=== PATIENT | male | born 1970 | race Caucasian/White ===

== ENCOUNTER 2018-03-18 13:02 | Day surgery (SDC) | payer OTHER ==
[~2018-03-18] VITALS: Ht 170.2 cm; Wt 97.5 kg
[~2018-03-18 13:02] MED LIST: AMLO10TA82 PO; BTR10SP2 NS; CEPH500C PO; CTLP20T PO; CYCL10TA9 PO; FEXO180T PO; HYDR118S10 PO; PANT20TA2 PO; TRIA1CAP PO
[2018-03-18] MEDS ORDERED: fentaNYL INJECTION 100 MCG/2 ML AMP ONE (13:06)
[2018-03-18] MEDS ORDERED: KETOROLAC 30 MG/ML VIAL ONE (13:07)
[2018-03-18] MEDS ORDERED: ONDANSETRON 4 MG/2 ML (SDV) Z0FRAN ONE (13:07)
--- OUTSIDE RECORDS SUMMARY | 2018-03-18 13:08 | XMS REPORT ---
Author Alfredo Domingo [facility] eClinicalWorks Address Unknown Phone Unavailable Care Team Providers Care Service Station Manager Name Role Phone Alfredo Maldonado Unavailable Allergies, Adverse Reactions, Alerts Substance Reaction Event Type N.K.D.A. Info Not Available Non Drug Allergy Problems Problem Type Condition Code Onset Dates Condition Status Assessment Gastroesophageal reflux 530.81 Active Assessment Dysthymia 300.4 Active Assessment Back pain 724.5 Active Problem Hypertension 401.9 Active Problem Dysthymia 300.4 Active Problem Upper respiratory infection 465.9 Active Assessment Upper respiratory infection 465.9 Active Assessment Hypertension 401.9 Active Problem Back pain 724.5 Active Problem Gastroesophageal reflux 530.81 Active Medications Medication Code System Code Instructions Start Date End Date Status Dosage Montelukast Sodium [facility] [address]-00 10 MG Orally at bedtime 1 tablet Pantoprazole Sodium [facility] [address]-21 40 mg Orally once daily [address] [facility] [address]-96 10 MG Orally Once a day [address] [facility] [address]-78 5 mg Orally Once a day [address] [facility] [address]-69 500 MG Orally Twice a day 1 tablet Benazepril HCl [facility] [address]-46 40 mg Orally Once a day 1 tablet Fexofenadine HCl [facility] [address]-68 180 MG Orally Once a day [address] [place] [facility] [address]-54 10-325 MG Orally every 6 hrs 1 tablet as needed Citalopram Hydrobromide [facility] [address]-79 20 mg Orally Once a day 1 tablet Butorphanol Tartrate [facility] [address]-74 10 MG/ML Nasally every 8 hrs 1 ml as needed Procedures Procedure Coding System Code Date Administration Fee 18yrs and up 1st injection CPT-4 85577 February 10, 2015 OFFICE VISITNEW PT CPT-4 18293 February 10, 2015 Depo Medrol 80mg CPT-4 J1040 February 10, 2015 Vital Signs Date/Time: February 10, 2015 Blood Pressure Systolic 160 mm Hg Height 68.5 in Weight 224 lbs BMI 33.56 Index Blood Pressure Diastolic 112 mm Hg Results No Known Results Summary Purpose eClinicalWorks Submission
--- OUTSIDE RECORDS SUMMARY | 2018-03-18 13:08 | XMS REPORT ---
Author Author Alfredo Maldonado [facility] eClinicalWorks Address Unknown Phone Unavailable Care Team Providers Care Weight Loss Sales Consultant Name Role Phone Alfredo Maldonado Unavailable Allergies No Known Allergies Problems Problem Type Condition Code Onset Dates Condition Status Problem Hypertension 401.9 Active Problem Dysthymia 300.4 Active Problem Upper respiratory infection 465.9 Active Problem Back pain 724.5 Active Problem Gastroesophageal reflux 530.81 Active Medications No Known Medications Results No Known Results Summary Purpose eClinicalWorks Submission
--- OUTSIDE RECORDS SUMMARY | 2018-03-18 13:08 | XMS REPORT | Clinical Summary ---
Author Author User, [employer] Erick Martinez DO, FACP Address Unknown Phone Allergies, Adverse Reactions, Alerts Allergy Name Reaction Description Start Date Severity Status Provider No Known Allergies Rosario Steiner Conditions or Problems Problem Name Problem Code Onset Date Status Entry Date Provider Comment Standard Description Annotate HYPERTENSION 401.1 Active Shaniqua Martinez Benign essential hypertension HYPERCHOLESTEROLEMIA 272.0 Active Shaniuqa Martinez Pure hypercholesterolemia HYPERGLYCEMIA, MILD 790.6 Active Shaniqua Martinez Other abnormal blood chemistry BACK PAIN 724.5 Active Shaniqua Martinez Backache, unspecified OBESITY 278.0 Resolved Shaniqua Martinez Overweight and obesity WEIGHT GAIN, ABNORMAL 783.1 Active Shaniqua Martinez Abnormal weight gain GERD 530.81 Resolved Shaniqua Martinez Esophageal reflux ALLERGIC RHINITIS, SEASONAL 477.0 Resolved Shaniqua Martinez Allergic rhinitis due to pollen OTHER CHRONIC NONALCOHOLIC LIVER DISEASE 571.8 Active Shaniqua Martinez Other chronic nonalcoholic liver disease HYPERTRIGLYCERIDEMIA 272.1 Active Shaniqua Martinez Pure hyperglyceridemia OBSTRUCTIVE SLEEP APNEA 780.57 Active Shaniqua Martinez Unspecified sleep apnea VERTIGO 780.4 Resolved Shaniqua Martinez Dizziness and giddiness NEUROPATHY, IDIOPATHIC PERIPHERAL 356.9 Resolved Shaniqua Martinez Unspecified idiopathic peripheral neuropathy DEMYELINATING DISEASE, CENTRAL 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.9 Resolved Shaniqua Martinez Demyelinating disease of central nervous system, unspecified HEADACHE 784.0 Resolved Shaniqua Martinez Headache CVA WITH RIGHT HEMIPARESIS 438.20 Active Shaniqua Martinez Hemiplegia affecting unspecified side as late effect of cerebrovascular disease ERECTILE DYSFUNCTION, 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 Shaniqua Martinez Impotence of organic origin GERD 530.81 Active Shaniqua Martinez Esophageal reflux HYPERLIPIDEMIA 272.4 Resolved Shaniqua Martinez Other and unspecified hyperlipidemia WHEEZING 786.07 Resolved Shaniqua Martienz Wheezing CELLULITIS 682.9 Resolved Shaniqua Martinez Cellulitis and abscess of unspecified sites CELLULITIS, METHICILLIN RESISTANT STAPHYLOCCOCUS AREUS 682.9 Resolved Shaniqua Martinez Cellulitis and abscess of unspecified sites HEALTH SCREENING V70.0 Inactive Shaniqua Martinez Routine general medical examination at a health care facility LUMBAR RADICULOPATHY, LEFT 724.4 Resolved Shaniqua Martinez Thoracic or lumbosacral neuritis or radiculitis, unspecified URINARY RETENTION 788.20 Resolved Shaniqua Martinez Retention of urine, unspecified HEALTH SCREENING V70.0 Active Shaniqua Martinez Routine general medical examination at a health care facility Medication List Medication Instructions Start Date Stop Date Generic Name NDC Status Provider Patient Instruction LENORA ALLERGY 180 MG TABS 1 PO DAILY FEXOFENADINE HCL 76302767730 Active Za Sanabria FLONASE 50 MCG/DOSE INHALANT 2 puffs each nostril daily FLONASE 50 MCG/DOSE INHALANT No Longer Active Shaniqua Jennifer Martinez ROBAXIN-750 TABS 1 PO TID PRN METHOCARBAMOL TABS 79335020449 No Longer Active Shaniqua Jennifer Martinez ROBAXIN-750 TABS 1 PO TID PRN METHOCARBAMOL TABS 04392920487 No Longer Active Shaniqua Jennifer Martinez BYSTOLIC 5 MG TABS 1 PO daily NEBIVOLOL HCL 84101382020 Active Za Sanabria LOTENSIN 40 MG TABS 1 PO daily BENAZEPRIL HCL 65095652008 Active Za Sanabria VIAGRA 50 MG TABS 1 po as directed SILDENAFIL CITRATE 64116431491 No Longer Active Shaniqua Jennifer Martinez DOXYCYCLINE HYCLATE 100 MG CAP 1 po BID DOXYCYCLINE HYCLATE 16969120483 No Longer Active Shaniqua Jennifer Martinez BACTROBAN 2 % CREAM Apply to affected area BID MUPIROCIN CALCIUM 58259248467 No Longer Active Shaniqua Jennifer Martinez VOLTAREN 75 MG EC TAB 1 PO BID DICLOFENAC SODIUM No Longer Active Shaniqua Jennifer Martinez ROBITUSSIN A-C 10-100 MG/5ML SYRUP 1 teaspoon PO Q 4-6 hr prn ROBITUSSIN A-C 10-100 MG/5ML SYRUP No Longer Active Shaniqua Jennifer Martinez SINGULAIR 10 MG TABS 1 PO QHS MONTELUKAST SODIUM 87518455877 Active Za Sanabria PREDNISONE 20 MG TAB 2 pills at once for 3 days then 1 pill daily for 3 days PREDNISONE 68933750712 No Longer Active Shaniqua Jennifer Martinez SYMBICORT 160-4.5 MCG/ACT AERO 2 puffs BID BUDESONIDE- FORMOTEROL FUMARATE 46594428434 Active Shaniqua Martinez PROAIR HFA 108 (90 BASE) MCG/ACT AERS 2 puff Q4 hrs prn wheezing ALBUTEROL SULFATE 82408288272 No Longer Active Shaniqua Martinez PROTONIX 40 MG TBEC 1 po BID PANTOPRAZOLE SODIUM 50744750483 Active Za Sanabria PROTONIX 40 MG PACK 1 PO daily PANTOPRAZOLE SODIUM 86127717025 No Longer Active Shaniqua Martinez HYDROCODONE-ACETAMINOPHEN 10-325 MG TABS 1 PO TID prn HYDROCODONE-ACETAMINOPHEN 54998871666 Active Shaniqua Martinez MULTIVITAMINS TABS 1 PO QD MULTIPLE VITAMIN 72801042339 Active Shaniqua Martinez NORVASC 10 MG TAB 1 PO QD AMLODIPINE BESYLATE 95952200335 Active Za Sanabria BUTORPHANOL TARTRATE 10 MG/ML SOLN 1 puff in nostril daily prn back pain 2009 BUTORPHANOL TARTRATE 49040771241 Active Shaniqua Martinez DYAZIDE 37.5-25 MG CAP 1 PO daily TRIAMTERENE-HCTZ 24099265082 Active Za Sanabria CELEXA 20 MG TABS 1 PO daily CITALOPRAM HYDROBROMIDE 95764846286 Active Za Sanabria Immunizations Vaccine Administration Date Value Standard Description Influenza vaccine given Done influenza virus vaccine, unspecified formulation Influenza vaccine given Received influenza virus vaccine, unspecified formulation Vital Signs Date Name Value Unit Range Description blood pressure, diastolic - 8462-4 90 mm[Hg] BP gonzalez blood pressure, systolic - 8480-6 144 mm[Hg] BP sys pulse rate E&M - 8867-4 70 /min Heart rate respiratory rate E&M - 9279-1 14 /min Resp rate temperature E&M 98.6 [degF] Body temperature weight E&M - 3141-9 225 [lb_av] Weight Measured blood pressure, diastolic - 8462-4 82 mm[Hg] BP gonzalez blood pressure, systolic - 8480-6 142 mm[Hg] BP sys pulse rate E&M - 8867-4 62 /min Heart rate respiratory rate E&M - 9279-1 14 /min Resp rate temperature E&M 98.6 [degF] Body temperature weight E&M - 3141-9 230 [lb_av] Weight Measured blood pressure, diastolic - 8462-4 80 mm[Hg] BP gonzalez blood pressure, systolic - 8480-6 140 mm[Hg] BP sys pulse rate E&M - 8867-4 72 /min Heart rate respiratory rate E&M - 9279-1 16 /min Resp rate temperature E&M 98.6 [degF] Body temperature weight E&M - 3141-9 238 [lb_av] Weight Measured Diagnostic Results Date Name Value Unit Range Description Clinical Lists Update: CMP,FLP - Chemistry Estimated Glomerular Filtration Rate (calc) >60 mL/min/1.73m2 LDL cholesterol, serum 103 mg/dL albumin, serum 3.5 g/dL alkaline phosphatase, serum 119 U/L urea nitrogen, blood 5 mg/dL calcium, serum 8.4 mg/dL chloride, serum 103 mmol/L cholesterol, serum 164 mg/dL carbon dioxide, venous blood 34 mmol/L creatinine, serum 0.7 mg/dL HDL cholesterol, serum 48 mg/dL potassium, serum 3.6 mmol/L protein, total, serum 6.8 g/dL aspartate aminotransferase (SGOT), serum 20 U/L alanine aminotransferase (SGPT), serum 31 U/L bilirubin, serum, total 0.7 mg/dL triglyceride, serum, fasting 64 mg/dL sodium, serum 140 mmol/L very low density lipoproteins 13 mg/dL glucose, plasma fasting 93 mg/dL Clinical Lists Update: CMP,FLP,HgA1c - Chemistry albumin, serum 3.7 g/dL Estimated Glomerular Filtration Rate (calc) >60 mL/min/1.73m2 potassium, serum 3.8 mmol/L cholesterol, serum 140 mg/dL protein, total, serum 6.5 g/dL calcium, serum 8.8 mg/dL aspartate aminotransferase (SGOT), serum 21 U/L carbon dioxide, venous blood 24 mmol/L alanine aminotransferase (SGPT), serum 15 U/L urea nitrogen, blood 9 mg/dL bilirubin, serum, total 1.2 mg/dL creatinine, serum 0.73 mg/dL triglyceride, serum, fasting 86 mg/dL chloride, serum 109 mmol/L sodium, serum 143 mmol/L HDL cholesterol, serum 41 mg/dL very low density lipoproteins 17 mg/dL alkaline phosphatase, serum 80 U/L glucose, plasma fasting 89 mg/dL hemoglobin A1C, blood, as % of total hemoglobin 5.8 % LDL cholesterol, serum 80 mg/dL Encounters Code Encounter Date Provider Facility CPT-60316 Ofc Vst, Est Level III 21:31:52 CDT Shaniqua Martinez DO, FACP CPT-25058 Ofc Vst, Est Level III 13:58:26 CDT Shaniqua Martinez DO, FACP CPT-78672 Ofc Vst, Est Level IV 21:21:15 CDT Shaniqua Martinez DO, FACP CPT-03729 Ofc Vst, Est Level III 12:29:23 BRAIDING OPERATOR Shaniqua Dickerson Juan, DO, FACP CPT-43467 Ofc Vst, Est Level IV 19:48:53 BRAIDING OPERATOR Shaniqua Dickerson Juan, DO, FACP CPT-36984 Ofc Vst, Est Level III 16:41:08 CDT Shaniqua Jennifer Dickerson Juan, DO, FACP CPT-86568 Ofc Vst, Est Level IV 13:27:18 CDT Shaniquaredd Dickerson Juan, DO, FACP CPT-55584 Ofc Vst, Est Level III 14:43:32 BRAIDING OPERATOR Shaniqua Dickerson Juan, DO, FACP CPT-55588 Ofc Vst, Est Level IV 14:12:51 CDT Shaniqua Jennifer Dickerson Juan, DO, FACP CPT-23684 Ofc Vst, Est Level III 15:33:12 CDT Shaniquaredd Dickerson Juan, DO, FACP CPT-18450 Ofc Vst, Est Level IV 13:47:55 BRAIDING OPERATOR Shaniqua Martinez [facility] CPT-45848 Ofc Vst, Est Level IV 11:25:41 BRAIDING OPERATOR Shaniqua Dickerson Juan, DO, FACP CPT-16099 Ofc Vst, Est Level V 15:38:08 BRAIDING OPERATOR Shaniqua Dickerson Juan, DO, FACP CPT-94567 Ofc Vst, Est Level IV 15:18:33 BRAIDING OPERATOR Shaniqua Rodriguez Martinez [facility] CPT-14448 Ofc Vst, Est Level IV 16:23:07 BRAIDING OPERATOR Shaniqua Rodriguez Juan [facility] CPT-49037 Ofc Vst, Est Level IV 11:31:05 CDT Shaniqua Jennifer Dickerson Juan, DO, FACP CPT-75963 Ofc Vst, Est Level IV 13:50:13 CDT Shaniquaredd Dickerson DO Juan, FACP CPT-26698 Ofc Vst, Est Level IV 14:32:32 CDT Shaniqua Martinez [facility] CPT-42828 Ofc Vst, Est Level IV 13:50:12 CDT Shaniqua Jennifer Floresner [facility] CPT-46152 Ofc Vst, Est Level IV 10:24:58 CDT Shaniqua Jennifer Mcgovern Jayla Martinez DO, FACP CPT-32904 Ofc Vst, Est Level IV 16:15:13 CDT Shaniqua Rodriguezredd Martinez DO, FACP CPT-47207 Ofc Vst, Est Level IV 15:25:35 BRAIDING OPERATOR Shaniqua Rodriguez Juan Martinez DO, FACP CPT-56478 Ofc Vst, New Level IV 15:47:59 BRAIDING OPERATOR Shaniqua Rodriguezi Jayla DO Juan, FACP Procedures Code Procedure Name Date Entry Date Standard Description CPT-61311 Preventive, Est, (40-64) 20:07:15 CDT CPT-25079 Preventive, Est, (40-64) 08:16:24 CDT
--- OUTSIDE RECORDS SUMMARY | 2018-03-18 13:09 | XMS REPORT ---
Author Author Alfredo Maldonado [facility] eClinicalWorks Address Unknown Phone Unavailable Care Team Providers Care Ignition Expert Name Role Phone Alfredo Maldonado Unavailable Allergies No Known Allergies Problems Problem Type Condition Code Onset Dates Condition Status Problem Erectile dysfunction, unspecified erectile dysfunction type N52.9 Active Problem Essential hypertension I10 Active Problem Abdominal pain R10.9 Active Problem Backache, unspecified M54.9 Active Assessment Erectile dysfunction, unspecified erectile dysfunction type N52.9 Active Problem Dysthymic disorder F34.1 Active Problem Gastroesophageal reflux disease without esophagitis K21.9 Active Medications Medication Code System Code Instructions Start Date End Date Status Dosage Viagra [facility] [address]-88 100 MG Orally take 30 min prior to activity 1 tablet as needed Results No Known Results Summary Purpose eClinicalWorks Submission
--- OUTSIDE RECORDS SUMMARY | 2018-03-18 13:09 | XMS REPORT ---
Author Alfredo Domingo [facility] eClinicalWorks Address Unknown Phone Unavailable Care Team Providers Care Evaporator Helper Name Role Phone Alfredo Maldonado Unavailable Allergies, Adverse Reactions, Alerts Substance Reaction Event Type N.K.D.A. Info Not Available Non Drug Allergy Problems Problem Type Condition Code Onset Dates Condition Status Assessment Gastroesophageal reflux disease without esophagitis K21.9 Active Assessment Essential hypertension I10 Active Assessment Dysthymic disorder F34.1 Active Assessment Erectile dysfunction, unspecified erectile dysfunction type N52.9 Active Assessment Medication management Z79.899 Active Problem Erectile dysfunction, unspecified erectile dysfunction type N52.9 Active Problem Essential hypertension I10 Active Problem Abdominal pain R10.9 Active Problem Backache, unspecified M54.9 Active Assessment Wellness examination Z00.00 Active Problem Dysthymic disorder F34.1 Active Problem Gastroesophageal reflux disease without esophagitis K21.9 Active Medications Medication Code System Code Instructions Start Date End Date Status Dosage Viagra [facility] [address]-68 100 MG Orally take 30 min prior to activity 1 tablet as needed Citalopram Hydrobromide [facility] 62312561968 20 TAKE ONE TABLET BY MOUTH DAILY Norvasc [facility] 66219012307 10 TAKE ONE TABLET BY MOUTH DAILY Fexofenadine HCl [facility] 04618257411 180 TAKE ONE TABLET BY MOUTH DAILY Pantoprazole Sodium [facility] [address]-64 40 mg Orally once daily 1 tablet Benazepril HCl [facility] 70630512986 40 TAKE ONE TABLET BY MOUTH DAILY [place] [facility] [address]-92 10-325 MG Orally every 6 hrs 1 tablet as needed Montelukast Sodium [facility] 88293334945 10 TAKE ONE TABLET BY MOUTH AT BEDTIME Butorphanol Tartrate [facility] [address]-63 10 MG/ML Nasally every 8 hrs 1 ml as needed Bystolic [facility] 25572570469 5 TAKE ONE TABLET BY MOUTH DAILY Procedures Procedure Coding System Code Date LIPID PROFILE CPT-4 74219 May 17, 2016 URINALYSIS CPT-4 59372 May 17, 2016 COMP PROFILE CPT-4 41073 May 17, 2016 TESTOSTERONE, TOTAL CPT-4 64462 May 17, 2016 CBC CPT-4 07873 May 17, 2016 Vital Signs Date/Time: May 17, 2016 Blood Pressure Systolic 136 mm Hg Height 68.5 in Weight 222 lbs BMI 33.26 Index Blood Pressure Diastolic 88 mm Hg Results Name Result Date Reference Range Unit Abnormality Flag LIPID PROFILE ----HDL-DIRECT 45 34276816 35-55 MG/DL ----LDL-DIRECT 78 41981205 0-99 MG/DL ----CHOL/HDL 2.9 15046680 4.0-6.7 RATIO L ----CHOLESTEROL 132 75964204 50-200 MG/DL ----TRIGLYCERIDE 86 34449380 30-150 MG/DL TESTOSTERONE ----TESTOSTERONE 8.12 53240250 2.80-8.00 ng/mL H CBC ----MCV 90.7 75928020 80.0-94.0 FL ----HCT 43.8 53606572 39.0-49.0 % ----MCHC 33.3 74657047 32.0-36.0 G/DL ----MCH 30.2 05349375 26.0-32.0 PG ----EO# 0.2 57545214 0.0-0.2 X10^3/UL ----PLT 277 25182019 130-400 X10^3 ----EO% 2.8 49586393 0.0-3.0 % ----RDW 12.4 49538273 11.5-15.5 % ----MO# 0.5 99560045 0.1-0.6 X10^3/UL ----MO% 6.0 95740072 1.7-9.3 % ----LY# 1.9 81685413 1.2-3.4 X10^3/UL ----BA# 0.1 98886697 0.0-0.1 X10^3/UL ----BA% 0.8 73445349 0.0-1.0 % ----HGB 14.6 59779334 13.8-17.0 G/DL ----RBC 4.83 02635439 4.50-5.70 X10^6 ----MPV 10.8 19100614 9.0-12.1 FL ----WBC 7.6 84125075 4.0-10.0 X10^3/UL ----NE% 65.4 19151620 42.2-75.2 % ----NE# 4.9 14026280 1.4-6.5 X10^3/UL ----LY% 24.6 43164048 20.5-51.1 % COMPREHENSIVE CHEM PROFILE ----SODIUM 143 12184283 133-145 MMOL/L ----TOTAL BILI 1.11 30388239 0.00-1.00 MG/DL H ----CHLORIDE 104 28487566 96-108 MMOL/L ----POTASSIUM 4.1 23554099 3.3-5.1 MMOL/L ----CALCIUM 9.0 63983126 8.7-10.3 MG/DL ----AST/SGOT 18 82570162 5-40 U/L ----CO2 28 49120769 23-31 MMOL/L ----TOTAL PROTEIN 6.7 86397114 5.9-8.4 G/DL ----eGFR If Am 176 43991160 >60 ml/min/1.73m^2 ----ALBUMIN 3.8 41163103 3.2-5.2 G/DL ----eGFR If Non Am 146 21807943 >60 ml/min/1.73m^2 ----BUN 7 96039555 6-20 MG/DL ----ALT/SGPT 9 62602171 5-40 U/L ----ALK PHOS 88 54371485 34-114 U/L ----CREATININE 0.6 23271221 0.5-1.2 MG/DL ----GLUCOSE 101 85097082 60-99 MG/DL H ----GLOBULIN 2.9 63151579 2.0-4.4 G/DL Urinalysis ----KETONES NEG 65578655 NEGATIVE ----GLUCOSE NORM 10141492 NEG MG/DL ----PROTEIN NEG 16700139 NEGATIVE ----pH 6.5 20160517 5-8 ----NITRITES NEG 20160517 NEGATIVE ----LEUKOCYTES NEG 20160517 NEGATIVE ----CLARITY CLEAR 20160517 CLEAR ----COLOR D.YEL 20160517 YELLOW-STRAW ----MUCOUS 2+ 20160517 NONE/HPF hpf ---- RBC 1-3 71199236 0-2/HPF hpf ----OTHER CASTS 0 20160517 NONE/LPF lpf ----SQUAMOUS EPITH OCCASIONAL 20160517 FEW/HPF hpf ----BACTERIA 0 80065378 NONE/HPF hpf ----CRYSTALS 0 20160517 NONE/HPF hpf ----BILIRUBIN NEG 20160517 NEGATIVE ----BLOOD NEG 20160517 NEGATIVE ----SPEC GRAVITY 1.023 20160517 1.016-1.022 ---- WBC 0-1 69470971 0-5/HPF hpf ----UROBILINOGEN 8 20160517 0 - 1.0 MG/DL Summary Purpose eClinicalWorks Submission
--- OUTSIDE RECORDS SUMMARY | 2018-03-18 13:09 | XMS REPORT | Clinical Summary ---
Author Author User, [employer] Shaniqua Martinez DO, FACP Address Unknown Phone Allergies, Adverse Reactions, Alerts Allergy Name Reaction Description Start Date Severity Status Provider No Known Allergies Rosario Steiner Conditions or Problems Problem Name Problem Code Onset Date Status Entry Date Provider Comment Standard Description Annotate HYPERTENSION 401.1 Active Shaniqua Martinez Benign essential hypertension HYPERCHOLESTEROLEMIA 272.0 Active Shaniqua Martinez Pure hypercholesterolemia HYPERGLYCEMIA, MILD 790.6 Active [...] and unspecified hyperlipidemia WHEEZING 786.07 Resolved Shaniqua Martinez Wheezing CELLULITIS 682.9 Resolved Shaniqua Martinez Cellulitis [...] MG TABS 1 PO DAILY FEXOFENADINE HCL 73562887994 Active Za Sanabria FLONASE 50 MCG/DOSE INHALANT 2 puffs each nostril daily FLONASE 50 MCG/DOSE INHALANT No Longer Active Shaniqua Jennifer Martinez ROBAXIN-750 TABS 1 PO TID PRN METHOCARBAMOL TABS 14990734696 No Longer Active Shaniqua Jennifer Martinez ROBAXIN-750 TABS 1 PO TID PRN METHOCARBAMOL TABS 18990221734 No Longer Active Shaniqua Jennifer Martinez BYSTOLIC 5 MG TABS 1 PO daily NEBIVOLOL HCL 79410442527 Active Za Sanabria LOTENSIN 40 MG TABS 1 PO daily BENAZEPRIL HCL 06169304299 Active Za Sanabria VIAGRA 50 MG TABS 1 po as directed SILDENAFIL CITRATE 20613643924 No Longer Active Shaniqua Jennifer Martinez DOXYCYCLINE HYCLATE 100 MG CAP 1 po BID DOXYCYCLINE HYCLATE 56885605257 No Longer Active Shaniqua Jennifer Martinez BACTROBAN 2 % CREAM Apply to affected area BID MUPIROCIN CALCIUM 92039722817 No Longer Active Shaniqua Jennifer Martinez VOLTAREN 75 MG EC TAB 1 PO BID DICLOFENAC SODIUM No Longer Active Shaniqua Jennifer Martinez ROBITUSSIN A-C 10-100 MG/5ML SYRUP 1 teaspoon PO Q 4-6 hr prn ROBITUSSIN A-C 10-100 MG/5ML SYRUP No Longer Active Shaniqua Jennifer Martinez SINGULAIR 10 MG TABS 1 PO QHS MONTELUKAST SODIUM 98345767975 Active Za Sanabria PREDNISONE 20 MG TAB 2 pills at once for 3 days then 1 pill daily for 3 days PREDNISONE 96565886424 No Longer Active Shaniqua Jennifer Martinez SYMBICORT 160-4.5 MCG/ACT AERO 2 puffs BID BUDESONIDE- FORMOTEROL FUMARATE 40484888023 Active Shaniquaredd Martinez PROAIR HFA 108 (90 BASE) MCG/ACT AERS 2 puff Q4 hrs prn wheezing ALBUTEROL SULFATE 24405279659 No Longer Active Shaniqua Martinez PROTONIX 40 MG TBEC 1 po BID PANTOPRAZOLE SODIUM 99212772610 Active Za Sanabria PROTONIX 40 MG PACK 1 PO daily PANTOPRAZOLE SODIUM 94847125950 No Longer Active Shaniqua Martinez HYDROCODONE-ACETAMINOPHEN 10-325 MG TABS 1 PO TID prn HYDROCODONE-ACETAMINOPHEN 40845782203 Active Shaniqua Martinez MULTIVITAMINS TABS 1 PO QD MULTIPLE VITAMIN 57829123617 Active Shaniqua Martinez NORVASC 10 MG TAB 1 PO QD AMLODIPINE BESYLATE 03936625896 Active Za Sanabria BUTORPHANOL TARTRATE 10 MG/ML SOLN 1 puff in nostril daily prn back pain 2009 BUTORPHANOL TARTRATE 47838995960 Active Shaniqua Martinez DYAZIDE 37.5-25 MG CAP 1 PO daily TRIAMTERENE-HCTZ 07913538893 Active Za Sanabria CELEXA 20 MG TABS 1 PO daily CITALOPRAM HYDROBROMIDE 75314689890 Active Za Sanabria Immunizations Vaccine Administration Date [...] mg/dL Encounters Code Encounter Date Provider Facility CPT-79548 Ofc Vst, Est Level III 21:31:52 CDT Shaniqua Martinez DO FACP CPT-41314 Ofc Vst, Est Level III 13:58:26 CDT Shaniqua Martinez DO, FACP CPT-80969 Ofc Vst, Est Level IV 21:21:15 CDT Shaniqua Martinez DO, FACP CPT-52486 Ofc Vst, Est Level III 12:29:23 [facility] Shaniqua Dickerson Martinez, DO, FACP CPT-20094 Ofc Vst, Est Level IV 19:48:53 [facility] [employer] [facility] Shaniqua Jennifer Dickerson Juan, DO, FACP CPT-51447 Ofc Vst, Est Level III 16:41:08 CDT Shaniqua Jennifer Dickerson Juan, DO, FACP CPT-22301 Ofc Vst, Est Level IV 13:27:18 CDT Shaniqua Jennifer Dickerson Juan, DO, FACP CPT-88835 Ofc Vst, Est Level III 14:43:32 [employer]UD[facility] [employer]ELOP[employer] [facility] Shaniqua Dickerson Juan, DO, FACP CPT-73610 Ofc Vst, Est Level IV 14:12:51 CDT Shaniqua Jennifer Dickerson Juan, DO, FACP CPT-07208 Ofc Vst, Est Level III 15:33:12 CDT Shaniquaredd Dickerson Juan, DO, FACP CPT-60604 Ofc Vst, Est Level IV 13:47:55 [facility]UD[facility] [employer]EL[employer] [facility] Shaniqua [facility] CPT-38623 Ofc Vst, Est Level IV 11:25:41 STUDENT [employer]ELOP[employer] [facility] Shaniqua Dickerson Juan, DO, FACP CPT-46772 Ofc Vst, Est Level V 15:38:08 STUDENT [employer]ELOP[employer] [facility] Shaniqua Dickerson Juan, DO, FACP CPT-41165 Ofc Vst, Est Level IV 15:18:33 STUDENT DEVELOPMENT [facility]AN Shaniqua Rodriguez [facility] CPT-23120 Ofc Vst, Est Level IV 16:23:07 STUDENT DEVELOPMENT [facility] Shaniqua Rodriguez [facility] CPT-47674 Ofc Vst, Est Level IV 11:31:05 CDT Shaniqua Jennifer Dickerson Juan, DO, FACP CPT-71873 Ofc Vst, Est Level IV 13:50:13 CDT Shaniquaredd Dickerson Juan DO, FACP CPT-42090 Ofc Vst, Est Level IV 14:32:32 CDT Shaniquaredd Martinez [facility] CPT-88171 Ofc Vst, Est Level IV 13:50:12 CDT Shaniqua Jennifer Floresner [facility] CPT-60780 Ofc Vst, Est Level IV 10:24:58 CDT Shaniqua Jennifer Dickerson Juan DO, FACP CPT-15228 Ofc Vst, Est Level IV 16:15:13 CDT Shaniquaredd Dickerson Juan DO, FACP CPT-76441 Ofc Vst, Est Level IV 15:25:35 STUDENT [employer]ELOP[employer] [facility] Shaniqua Dickerson Juan DO, FACP CPT-16868 Ofc Vst, New Level IV 15:47:59 STUDENT DEVELOPMENT [facility] Shaniqua Dickerson Juan DO, FACP Procedures Code Procedure Name Date Entry Date Standard Description CPT-39500 Preventive, Est, (40-64) 20:07:15 CDT CPT-81675 Preventive, Est, (40-64) 08:16:24 CDT
[2018-03-18] MEDS ORDERED: ONDANSETRON 4 MG/2 ML (SDV) Z0FRAN IVP ONE (13:15)
[2018-03-18] MEDS ORDERED: fentaNYL INJECTION 100 MCG/2 ML AMP IVP ONE ×3 (13:15→14:00)
[2018-03-18] MEDS ORDERED: KETOROLAC 30 MG/ML VIAL IVP ONE (13:15)
--- NOTE | 2018-03-18 13:17 | ED Abdominal Pain ---
General Chief Complaint: Abdominal/GI Problems Stated Complaint: ABD PAIN,BACK PAIN Source of Information: Patient Exam Limitations: No Limitations History of Present Illness Date Seen by Provider: Mar 18, 2018 Time Seen by Provider: 13:18 Initial Comments to ER with right upper quadrant and epigastric abdominal pain severe in nature radiating through to his back making it difficult to take a deep breath. This pain awakened him from sleep at 07 30 this morning. His associated dry heaving, nausea and vomited twice. One of these episodes of vomiting he did notice some blood-streaked emesis. History of lap band. No fevers or chills. Timing/Duration: 4-6 Hours Severity/Quality: Severe Location: RUQ, Epigastric Radiation: Back Activities at Onset: None Associated Symptoms: Back Pain; No Fever/Chills; Nausea/Vomiting Allergies and Home Medications Allergies Coded Allergies: No Known Drug Allergies (Unverified , 05/09/10) Home Medications Amlodipine Besylate 10 Mg Tablet, 1 EACH PO DAILY, (Reported) Butorphanol Tartrate 10 Mg/Ml Can, 1 SPRAY NS NEEDED, (Reported) Citalopram Hydrobromide 20 Mg Tablet, 1 EACH PO DAILY, (Reported) Fexofenadine Hcl 180 Mg Tablet, 1 TAB PO DAILY, (Reported) Pantoprazole Sodium 20 Mg Tablet.dr, 40 MG PO DAILY, (Reported) Triamterene/Hctz 1 Each Capsule, 1 EACH PO DAILY, (Reported) Patient Home Medication List Home Medication List Reviewed: Yes Review of Systems Constitutional: see HPI EENTM: No Symptoms Reported Respiratory: No Symptoms Reported Cardiovascular: No Symptoms Reported Gastrointestinal: See HPI, Abdominal Pain, Nausea, Vomiting Genitourinary: No Symptoms Reported Musculoskeletal: no symptoms reported Skin: no symptoms reported Psychiatric/Neurological: No Symptoms Reported Endocrine: No Symptoms Reported Hematologic/Lymphatic: No Symptoms Reported Past Rpdvoec-Ixmwqg-Hbvgtt Hx Patient Social History Alcohol Use: Occasionally Uses Recreational Drug Use: No Smoking Status: Never a Smoker Recent Foreign Travel: No Contact w/Someone Who Travel: No Recent Hopitalizations: Yes (back and T&A surgeries) Physical Abuse: No Sexual Abuse: No Mistreated: No Fear: No Immunizations Up To Date Tetanus Booster (TDap): Less than 5yrs Date of Influenza Vaccine: Jul 17, 2013 Past Medical History Surgeries: Yes (BACK SURGERY, LAP BAND) Respiratory: No Cardiac: Yes Hypertension Neurological: No Reproductive Disorders: No Sexually Transmitted Disease: No Gastrointestinal: No Musculoskeletal: No Endocrine: No Cancer: No Psychosocial: Yes Depression Nursing Suicide Risk Score: 0 Integumentary: No Blood Disorders: No Family Medical History No Pertinent Family Hx Physical Exam Vital Signs Vital Signs - First Documented 03/18/18 13:12 Temp 98.2 Pulse 60 Resp 20 B/P (MAP) 188/129 (148) Pulse Ox 100 Capillary Refill : General Appearance: moderate distress HEENT: PERRL/EOMI, normal ENT inspection Neck: non-tender, full range of motion Respiratory: normal breath sounds, no respiratory distress, no accessory muscle use Cardiovascular: regular rate, rhythm, no murmur Gastrointestinal: normal bowel sounds, soft, tenderness (right upper quadrant and epigastric) Extremities: normal range of motion, non-tender Neurologic/Psychiatric: alert, normal mood/affect, oriented x 3 Skin: normal color, warm/dry Progress/Results/Core Measures Results/Orders Lab Results Laboratory Tests Test 03/18/18 13:07 Range/Units White Blood Count 6.6 4.3-11.0 10^3/uL Red Blood Count 5.00 4.35-5.85 10^6/uL Hemoglobin 15.3 13.3-17.7 G/DL Hematocrit 44 40-54 % Mean Corpuscular Volume 88 80-99 FL Mean Corpuscular Hemoglobin 31 25-34 PG Mean Corpuscular Hemoglobin Concent 35 32-36 G/DL Red Cell Distribution Width 12.9 10.0-14.5 % Platelet Count 349 130-400 10^3/uL Mean Platelet Volume 9.7 7.4-10.4 FL Neutrophils (%) (Auto) 46 42-75 % Lymphocytes (%) (Auto) 44 12-44 % Monocytes (%) (Auto) 8 0-12 % Eosinophils (%) (Auto) 2 0-10 % Basophils (%) (Auto) 1 0-10 % Neutrophils # (Auto) 3.0 1.8-7.8 X 10^3 Lymphocytes # (Auto) 2.9 1.0-4.0 X 10^3 Monocytes # (Auto) 0.5 0.0-1.0 X 10^3 Eosinophils # (Auto) 0.1 0.0-0.3 10^3/uL Basophils # (Auto) 0.1 0.0-0.1 10^3/uL Sodium Level 142 135-145 MMOL/L Potassium Level 3.4 L 3.6-5.0 MMOL/L Chloride Level 106 98-107 MMOL/L Carbon Dioxide Level 25 21-32 MMOL/L Anion Gap 11 5-14 MMOL/L Blood Urea Nitrogen 9 7-18 MG/DL Creatinine 0.78 0.60-1.30 MG/DL Estimat Glomerular Filtration Rate > 60 BUN/Creatinine Ratio 12 Glucose Level 111 H 70-105 MG/DL Calcium Level 9.4 8.5-10.1 MG/DL Total Bilirubin 1.1 H 0.1-1.0 MG/DL Aspartate Amino Transf (AST/SGOT) 20 5-34 U/L Alanine Aminotransferase (ALT/SGPT) 13 0-55 U/L Alkaline Phosphatase 103 40-136 U/L Total Protein 7.5 6.4-8.2 GM/DL Albumin 4.0 3.2-4.5 GM/DL Lipase 30 8-78 U/L My Orders Orders - JERO BENITEZ APRN Cbc With Automated Diff (03/18/18 13:10) Comprehensive Metabolic Panel (03/18/18 13:10) Lipase (03/18/18 13:10) Ua Culture If Indicated (03/18/18 13:10) Iv Heplock-Insert (Order) (03/18/18 13:10) Ondansetron Injection (Zofran Injectio (03/18/18 13:15) Fentanyl Injection (Sublimaze Injection (03/18/18 13:15) Ketorolac Injection (Toradol Injection) (03/18/18 13:15) Us Gallbladder [id number] (03/18/18 13:13) Fentanyl Injection (Sublimaze Injection (03/18/18 13:30) Fentanyl Injection (Sublimaze Injection (03/18/18 14:00) Medications Given in ED Current Medications Medications Dose Ordered Sig/Amy Route Start Time Stop Time Status Last Admin Dose Admin Fentanyl Citrate 50 mcg ONCE ONCE IVP 03/18/18 13:30 03/18/18 13:31 DC 03/18/18 13:22 50 MCG Fentanyl Citrate 75 mcg ONCE ONCE IVP 03/18/18 13:15 03/18/18 13:16 DC 03/18/18 13:08 75 MCG Ketorolac Tromethamine 30 mg ONCE ONCE IVP 03/18/18 13:15 03/18/18 13:16 DC 03/18/18 13:08 30 MG Ondansetron HCl 8 mg ONCE ONCE IVP 03/18/18 13:15 03/18/18 13:16 DC 03/18/18 13:08 8 MG Vital Signs/I&O 03/18/18 13:12 Temp 98.2 Pulse 60 Resp 20 B/P (MAP) 188/129 (148) Pulse Ox 100 Diagnostic Imaging Diagonstic Imaging: Ultrasound Comments NAME: JAQUELINE MULLEN JR [facility] REC#: [id number] PT STATUS: REG ER : 1970 PHYSICIAN: JERO BENITEZ APRN ADMIT DATE: 03/18/18/ER Draft Date of Exam:03/18/18 US GALLBLADDER [id number] PROCEDURE: US Gallbladder. TECHNIQUE: Multiple real-time grayscale images were obtained over the right upper quadrant in various projections. INDICATION: Abdominal pain. COMPARISON: None. FINDINGS: The liver appears unremarkable. No focal hepatic mass is seen. Common bile duct is not well visualized; however, no gross biliary dilatation is seen. There is a 2 cm stone lodged within the gallbladder neck. There is no gallbladder wall thickening or pericholecystic fluid. There is no sonographic Ordonez's sign. The pancreas is not well visualized. The right kidney measures 11.7 cm in length and appears normal. There is no ascites. IMPRESSION: 1. Cholelithiasis without evidence of cholecystitis. 2. No additional abnormality is seen. The pancreas and common bile duct are not well seen. Dictated on workstation # [id number] Dict: 03/18/18 1409 Trans: 03/18/18 1413 [facility] [id number] Interpreted by: DAMON VIVAR DO Electronically signed by: NAME: JAQUELINE MULLEN JR [facility] REC#: [id number] PT STATUS: ADM Cali : 1970 PHYSICIAN: JERO BENITEZ APRN ADMIT DATE: 03/18/18/4TH Signed Date of Exam:06/04/18 US GALLBLADDER [id number] PROCEDURE: US Gallbladder. TECHNIQUE: Multiple real-time grayscale images were obtained over the right upper quadrant in various projections. INDICATION: Abdominal pain. COMPARISON: None. FINDINGS: The liver appears unremarkable. No focal hepatic mass is seen. Common bile duct is not well visualized; however, no gross biliary dilatation is seen. There is a 2 cm stone lodged within the gallbladder neck. There is no gallbladder wall thickening or pericholecystic fluid. There is no sonographic Ordonez's sign. The pancreas is not well visualized. The right kidney measures 11.7 cm in length and appears normal. There is no ascites. IMPRESSION: 1. Cholelithiasis without evidence of cholecystitis. 2. No additional abnormality is seen. The pancreas and common bile duct are not well seen. 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 Common bile duct cannot be visualized.I relayed these findings to Dr. New who is on-call for surgery. recommends admission, clear liquid diet today, nothing by mouth after midnight with tentative plan for cholecystectomy tomorrow. He would recommend Zosyn, nausea and pain medication and continuing his antihypertensives. Impression Primary Impression: Symptomatic cholelithiasis Disposition: ADMITTED INPATIENT Condition: Stable Admissions Decision to Admit Reason: Admit from ER (General) Decision to Admit/Date: Mar 18, 2018 Time/Decision to Admit Time: 14:08 Departure-Patient Inst. Referrals: NO,LOCAL PHYSICIAN (PCP/Family) Primary Care Physician JERO BENITEZ APRN Mar 18, 2018 13:17
[2018-03-18 13:18] LABS: BASOPHILS # (AUTO) 0.1 10^3/uL (0.0-0.1); BASOPHILS % (AUTO) 1 % (0-10); EOSINOPHILS # (AUTO) 0.1 10^3/uL (0.0-0.3); EOSINOPHILS % (AUTO) 2 % (0-10); HEMATOCRIT 44 % (40-54); HEMOGLOBIN 15.3 G/DL (13.3-17.7); LYMPHOCYTES # (AUTO) 2.9 X 10^3 (1.0-4.0); LYMPHOCYTES % (AUTO) 44 % (12-44); MEAN CORPUSCULAR HEMOGLOBIN 31 PG (25-34); MEAN CORPUSCULAR HGB CONC 35 G/DL (32-36); MEAN CORPUSCULAR VOLUME 88 FL (80-99); MEAN PLATELET VOLUME 9.7 FL (7.4-10.4); MONOCYTES # (AUTO) 0.5 X 10^3 (0.0-1.0); MONOCYTES % (AUTO) 8 % (0-12); NEUTROPHILS % (AUTO) 46 % (42-75); PLATELET COUNT 349 10^3/uL (130-400); RED CELL DISTRIBUTION WIDTH 12.9 % (10.0-14.5); WHITE BLOOD COUNT 6.6 10^3/uL (4.3-11.0)
[2018-03-18 13:37] LABS: ALANINE AMINOTRANSFERASE 13 U/L (0-55); ALKALINE PHOSPHATASE 103 U/L (40-136); BILIRUBIN,TOTAL 1.1 MG/DL (0.1-1.0); BUN/CREATININE RATIO 12; CALCIUM 9.4 MG/DL (8.5-10.1); CARBON DIOXIDE 25 MMOL/L (21-32); CHLORIDE 106 MMOL/L (98-107); CREATININE SERUM 0.78 MG/DL (0.60-1.30); GFR ESTIMATED > 60; GLUCOSE 111 MG/DL (70-105); LIPASE 30 U/L (8-78); POTASSIUM 3.4 MMOL/L (3.6-5.0); SODIUM 142 MMOL/L (135-145); TOTAL PROTEIN 7.5 GM/DL (6.4-8.2)
[2018-03-18] MEDS ORDERED: PIPERACILLIN SODIUM/TAZOBACTAM 4.5 GM in D5W 100 ML IVPB 100 ML IV ONE (14:00)
--- NOTE | 2018-03-18 14:14 | Diagnostic Imaging Report ---
PROCEDURE: US Gallbladder. TECHNIQUE: Multiple real-time grayscale images were obtained over the right upper quadrant in various projections. INDICATION: Abdominal pain. COMPARISON: None. FINDINGS: The liver appears unremarkable. No focal hepatic mass is seen. Common bile duct is not well visualized; however, no gross biliary dilatation is seen. There is a 2 cm stone lodged within the gallbladder neck. There is no gallbladder wall thickening or pericholecystic fluid. There is no sonographic Ordonez's sign. The pancreas is not well visualized. The right kidney measures 11.7 cm in length and appears normal. There is no ascites. IMPRESSION: 1. Cholelithiasis without evidence of cholecystitis. 2. No additional abnormality is seen. The pancreas and common bile duct are not well seen. Dictated by: Dictated on workstation # [id number]
[2018-03-18] MEDS ORDERED: LACTATED RINGERS 1,000 ML IV PRN (14:44)
[2018-03-18] MEDS ORDERED: KCL 20 MEQ TAB (K-DUR) PO NR (14:45)
[2018-03-18 15:05] VITALS: BP 163/102
[2018-03-18] MEDS ORDERED: PANTOPRAZOLE 40 MG/10 ML (PROTONIX) VIAL IV SCH (15:27)
[2018-03-18] MEDS ORDERED: PIPERACILLIN/TAZO 4.5 GM/D5W 100 ML IVPB IV ONE ×2 (15:30)
[2018-03-18] MEDS ORDERED: ONDANSETRON 4 MG/2 ML (SDV) Z0FRAN IV PRN ×2 (15:30)
[2018-03-18] MEDS ORDERED: fentaNYL INJECTION 100 MCG/2 ML AMP IV PRN (15:30)
[2018-03-18] MEDS ORDERED: NS IV 1000 ML 1,000 ML IV SCH (15:30)
[2018-03-18] MEDS ORDERED: BENA40TA59 PO (15:42)
[2018-03-18] MEDS ORDERED: MONT10TA21 PO (15:44)
[2018-03-18] MEDS ORDERED: CITA20TA12 PO (15:44)
[2018-03-18] MEDS ORDERED: AMLO10TA2 PO (15:44)
[2018-03-18] MEDS ORDERED: PANT40TA3 PO (15:44)
[2018-03-18] MEDS ORDERED: NEBI5TAB8 PO (15:44)
[2018-03-18] MEDS: lisINopril 40 MG (PRINIVIL) TABLET PO SCH (15:44)
[2018-03-18] MEDS: NEBIVOLOL 5 MG TAB (BYSTOLIC) PO SCH (15:44)
[2018-03-18] MEDS ORDERED: FEXO-46 PO (15:44)
[2018-03-18] MEDS: NS W/KCL 40 MEQ/L 1,000 ML IV SCH (15:45)
[2018-03-18] MEDS: fentaNYL INJECTION 100 MCG/2 ML AMP IV PRN ×2 (15:59→19:33)
[2018-03-18] MEDS ORDERED: CATHETER FLUSH 10 ML SYR IV PRN (16:00)
--- NOTE | 2018-03-18 17:42 | History & Physicial ---
History of Present Illness History of Present Illness Reason for visit/HPI Recurrent biliary colic over a 1 year with acute and unresolved pain over the right upper quadrant was the last 48 hours. 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) Date of Admission Mar 18, 2018 at 13:53 Date Seen by Provider: Mar 18, 2018 Time Seen by Provider: 17:38 I consulted on this patient on 03/18/18 17:37 Attending Physician Radha Grace MD Admitting Physician No,Local Physician Consult Allergies and Home Medications Allergies Coded Allergies: No Known Drug Allergies (Unverified , 03/18/18) Home Medications Amlodipine Besylate 10 Mg Tablet, 10 MG PO 0600, (Reported) LAST FILLED #30 Benazepril HCl 40 Mg Tablet, 40 MG PO 0600, (Reported) LAST FILLED #30 10-17-17 Citalopram Hydrobromide 20 Mg Tablet, 20 MG PO 0600, (Reported) LAST FILLED #30 Fexofenadine HCl 180 Mg Tablet, 180 MG PO 0600, (Reported) Montelukast Sodium 10 Mg Tablet, 10 MG PO 0600, (Reported) Nebivolol HCl 5 Mg Tablet, 5 MG PO 0600, (Reported) LAST FILLED #30 10-17-17 Pantoprazole Sodium 40 Mg Tablet.dr, 40 MG PO 0600, (Reported) LAST FILLED #30 10-17-17 Patient Home Medication List Home Medication List Reviewed: Yes Past Hvudcnq-Cqevij-Xnarpm Hx Patient Social History Marrital Status: Employed/Student: employed Alcohol Use: Occasionally Uses Recreational Drug Use: No Smoking Status: Never a Smoker Physical Abuse Screen: No Sexual Abuse: No Recent Foreign Travel: No Contact w/other who traveled: No Recent Hopitalizations: Yes (back and T&A surgeries) Recent Infectious Disease Expo: No Immunizations Up To Date Tetanus Booster (TDap): Less than 5yrs Date of Influenza Vaccine: Jul 17, 2013 Seasonal Allergies Seasonal Allergies: No Surgeries Yes (BACK SURGERY, LAP BAND, T & A) Respiratory No Cardiovascular Yes Hypertension Neurological No Reproductive System Hx Reproductive Disorders: No Sexually Transmitted Disease: No Gastrointestinal Yes Gall Bladder Disease Musculoskeletal Yes (BACK SURGERY) Endocrine History of Endocrine Disorders: No Cancer No Psychosocial History of Psychiatric Problem: Yes Behavioral Health Disorders: Depression Integumentary History of Skin or Integumenta: No Blood Transfusions History of Blood Disorders: No Family Medical History Significant Family History: No Pertinent Family Hx Constitutional: malaise Respiratory: no symptoms reported Cardiovascular: no symptoms reported Gastrointestinal: see HPI Genitourinary: no symptoms reported Musculoskeletal: no symptoms reported Skin: other Psychiatric/Neurological: No Symptoms Reported Physical Exam Vital Signs Vital Signs - First Documented 03/18/18 13:12 Temp 98.2 Pulse 60 Resp 20 B/P (MAP) 188/129 (148) Pulse Ox 100 Capillary Refill : Less Than 3 SecondsLess Than 3 Seconds General Appearance: No Apparent Distress HEENT: Normal ENT Inspection Neck: Normal Inspection Cardiovascular: Regular Rate, Rhythm Gastrointestinal: Soft, Tenderness Back: Other Extremity: Normal Inspection Neurologic/Psychiatric: Alert, Oriented x3 Skin: Warm/Dry Comments evidence of lap band placement with the port situated superior lateral to the umbilicus on the right side. Surgical scar over the mid back. Tenderness over the right upper quadrant, consistent with positive Ordonez's sign. Assessment/Plan Assessment and Plan Gentleman with a solitary gallstone and clinical evidence of early acute cholecystitis. Previous lap band placement for morbid obesity. Elevated bilirubin. Hypertension, controlled. I have initiated intravenous antibiotic therapy and scheduled robotic-assisted cholecystectomy with possible cholangiogram or tomorrow. I have reviewed the anatomic details of gallstone disease, operative details, expected recovery, complications of wound infection and bile leak etc., using a hand drawn illustration. He seems to comprehend and is willing to undergo surgery. Admission Diagnosis Admission Status: Observation Clinical Quality Measures DVT/VTE Risk/Contraindication: Risk Factor Score Per Nursin RFS Level Per Nursing on Admit: 3=High RADHA GRACE MD Mar 18, 2018 17:42
--- NOTE | 2018-03-18 17:42 | Progress Note-Pre Operative ---
Pre-Operative Progress Note H&P Reviewed The H&P was reviewed, patient examined and no changes noted. Date Seen by Provider: Mar 18, 2018 Time Seen by Provider: 17:42 Date H&P Reviewed: Mar 18, 2018 Time H&P Reviewed: 17:42 Pre-Operative Diagnosis: gallstones with acute cholecystitis RADHA GRACE MD Mar 18, 2018 17:42
[2018-03-18] MEDS ORDERED: metroNIDAZOLE 500MG/100ML IVPB 100 ML IV NR (17:45)
[2018-03-18] MEDS ORDERED: ceFAZolin 2 GM IV Premixed 50 ML IV NR (17:45)
[2018-03-18 19:35] VITALS: BP 146/94
[2018-03-18] MEDS ORDERED: PIPERACILLIN/TAZO 4.5 GM/D5W 100 ML IVPB IV SCH ×2 (20:00)
[2018-03-18] MEDS: PIPERACILLIN/TAZO 4.5 GM/D5W 100 ML IVPB IV SCH ×2 (21:25)
[2018-03-19] VITALS: BP 159/98
[2018-03-19] MEDS: fentaNYL INJECTION 100 MCG/2 ML AMP IV PRN ×6 (00:41→23:20)
[2018-03-19] MEDS: NS W/KCL 40 MEQ/L 1,000 ML IV SCH ×3 (02:03→17:42)
[2018-03-19 04:00] VITALS: BP 127/81
[2018-03-19] MEDS: PIPERACILLIN/TAZO 4.5 GM/D5W 100 ML IVPB IV SCH ×4 (05:24→12:55)
[2018-03-19] MEDS: PANTOPRAZOLE 40 MG (PROTONIX) TAB PO SCH (05:28)
[2018-03-19] MEDS: amLODIPine 10 MG (NORVASC) TAB PO SCH (05:28)
[2018-03-19] MEDS ORDERED: NON-FORMULARY MEDICATION 1 EA EA (Amlodipine Besylate 10 MG) PO SCH (06:00)
[2018-03-19] MEDS ORDERED: BENAZEPRIL HCL 40 MG PO SCH (06:00)
[2018-03-19] MEDS ORDERED: NEBIVOLOL 5 MG TAB (BYSTOLIC) PO SCH (06:00)
[2018-03-19 07:11] LABS: ALANINE AMINOTRANSFERASE 10 U/L (0-55); ALKALINE PHOSPHATASE 74 U/L (40-136); BILIRUBIN,TOTAL 1.4 MG/DL (0.1-1.0); BUN/CREATININE RATIO 10; CALCIUM 8.2 MG/DL (8.5-10.1); CARBON DIOXIDE 23 MMOL/L (21-32); CHLORIDE 111 MMOL/L (98-107); CREATININE SERUM 0.78 MG/DL (0.60-1.30); GFR ESTIMATED > 60; GLUCOSE 89 MG/DL (70-105); POTASSIUM 4.2 MMOL/L (3.6-5.0); SODIUM 142 MMOL/L (135-145); TOTAL PROTEIN 5.4 GM/DL (6.4-8.2)
[2018-03-19 08:00] VITALS: BP 126/82
[2018-03-19] MEDS: NEBIVOLOL 5 MG TAB (BYSTOLIC) PO SCH ×2 (10:04→12:53)
[2018-03-19] MEDS: lisINopril 40 MG (PRINIVIL) TABLET PO SCH (10:04)
[2018-03-19 12:00] VITALS: BP 131/71
--- NOTE | 2018-03-19 13:30 | Progress Note-Standard ---
Standard Progress Note Progress Notes/Assess & Plan Date Seen by Provider: Mar 19, 2018 Time Seen by Provider: 12:08 Progress/Assessment & Plan right upper quadrant pain persists. Bilirubin more elevated. Awaiting surgery Final Diagnosis gallstone with acute cholecystitis RADHA GRACE MD Mar 19, 2018 13:30
[2018-03-19] MEDS: LACTATED RINGERS 1,000 ML IV PRN ×3 (14:17→16:27)
[2018-03-19] MEDS ORDERED: BUP/EPI 0.5% 1:200,000 (SENSORCAINE) 30 ML VIAL ONE (14:23)
[2018-03-19] MEDS ORDERED: metroNIDAZOLE 500MG/100ML IVPB 100 ML ONE (14:33)
[2018-03-19] MEDS ORDERED: ceFAZolin 1,000 MG (ANCEF) VIAL ONE (14:33)
[2018-03-19] MEDS ORDERED: NS (IVPB) 100 ML ONE (14:34)
[2018-03-19] MEDS ORDERED: ONDANSETRON 4 MG/2 ML (SDV) Z0FRAN ONE (14:51)
[2018-03-19] MEDS ORDERED: fentaNYL INJECTION 100 MCG/2 ML AMP ONE ×2 (14:51→15:45)
[2018-03-19] MEDS ORDERED: DEXAMETHASONE 10 MG/ML (DECADRON) 1 ML VIAL ONE (14:51)
[2018-03-19] MEDS ORDERED: proPOfol 200 MG/20 ML (DIPRIVAN) VIAL IV ONE (14:51)
[2018-03-19] MEDS ORDERED: GLYCOPYRROLATE 0.2 MG/ML (ROBINUL) 2 ML VIAL ONE (14:51)
[2018-03-19] MEDS ORDERED: MIDAZOLAM 2 MG/2 ML (VERSED) VIAL ONE (14:51)
[2018-03-19] MEDS ORDERED: LIDOCAINE PF 2% 5 ML (XYLOCAINE) VIAL ONE (14:51)
[2018-03-19] MEDS ORDERED: NEOSTIGMINE 1 MG/ML 5 ML SYRINGE ONE (14:51)
[2018-03-19] MEDS ORDERED: SEVOFLURANE (ULTANE) 15 ML INHAL SOLN ONE (14:51)
[2018-03-19] MEDS ORDERED: ROCURONIUM 10 MG/ML 5 ML SYRINGE IV ONE (14:51)
[2018-03-19] MEDS ORDERED: ATROPINE 0.4 MG/ML 20 ML VIAL ONE (15:30)
[2018-03-19] MEDS ORDERED: morphine INJ 10 MG/ML 1ML (SYR OR VIAL) ONE (16:13)
--- NOTE | 2018-03-19 16:32 | Operative Report ---
Operative Report Date of Procedure/Surgery Mar 19, 2018 Surgeon (s) RADHA GRACE MD New Car Sales Manager (s): N/A Post-Operative Diagnosis Same Procedure Performed Laparoscopic cholecystectomy Description of Procedure Anesthesia Type: General Estimated blood loss (mL): Minimal Specimen(s) collected/removed Gallbladder Description of the Procedure Indication for the procedure: This gentleman presented with symptomatic gallstone and features of early acute cholecystitis. Following a brief course of IV antibiotics, he was offered cholecystectomy using laparoscopic technique. Informed consent was obtained after reviewing the details and complications of wound infection, bile leak and the potential for postoperative ERCP, should stones be found in the common bile duct. Description of the procedure: He was placed supine on the operating table and general anesthesia induced using an endotracheal tube. 2 g of Ancef and 500 mg of Flagyl were administered intravenously as prophylaxis against wound infection. Sequential compression devices were placed around his legs, to minimize the risk of venous thrombosis. Abdomen was prepared and draped in the usual sterile manner. Due to previous lap band surgery, I elected to establish pneumoperitoneum using a Veress needle introduced over the left subcostal region. Intra-abdominal pressure was maintained at 15 mmHg, using carbon dioxide insufflation. A 5 mm trocar was placed and anatomy visualized using a 30, conventional laparoscope. The catheter connected to the reservoir associated with the lap band was visualized, slightly surrounded by omentum. Under direct view, I placed a 12 mm trocar over the supraumbilical region, followed by a total of 35 mm trocars over the epigastric region and the right side of the abdomen, respectively. The patient was then turned into reverse Trendelenburg position. Laparoscopic survey confirmed an acutely inflamed gallbladder surrounded by omentum. The latter was gently displaced using blunt dissection, revealing the fundus of the gallbladder. It was retracted cephalad and by a combination of blunt dissection and sharp dissection using Harmonic scalpel, cystic duct and artery with delineated. Due to the inflamed nature of the duct, it was felt reasonable to avoid cholangiogram. Cystic duct was then divided between ligaclips and the stump reinforced with 2 separate PDS Endoloops. Cystic artery was divided between ligaclips. Cholecystectomy was then completed using the Harmonic scalpel. Bleeding from the gallbladder fossa was controlled using cautery. Subhepatic space was then irrigated with saline and the gallbladder placed in an Endo Catch bag, being removed via the supraumbilical trocar site. The fascia over this incision was closed using #1 Vicryl under direct view, using the Yosi Oliver device. Skin incisions were closed using 4-0 Vicryl, in a subcuticular fashion. 0.5 percent Marcaine with epinephrine was infiltrated along the incisions, both pre-emptively and at the conclusion of the operation. He tolerated the procedure well, was extubated in the operating room and taken to the recovery room in a stable condition. Findings of the Procedure See op report Allergies and Home Medications Allergies Coded Allergies: No Known Drug Allergies (Unverified , 03/18/18) Home Medications Amlodipine Besylate 10 Mg Tablet, 10 MG PO 0600, (Reported) LAST FILLED #30 Benazepril HCl 40 Mg Tablet, 40 MG PO 0600, (Reported) LAST FILLED #30 10-17-17 Citalopram Hydrobromide 20 Mg Tablet, 20 MG PO 0600, (Reported) LAST FILLED #30 Fexofenadine HCl 180 Mg Tablet, 180 MG PO 0600, (Reported) Montelukast Sodium 10 Mg Tablet, 10 MG PO 0600, (Reported) Nebivolol HCl 5 Mg Tablet, 5 MG PO 0600, (Reported) LAST FILLED #30 10-17-17 Pantoprazole Sodium 40 Mg Tablet.dr, 40 MG PO 0600, (Reported) LAST FILLED #30 10-17-17 Patient Home Medication List Home Medication List Reviewed: Yes RADHA GRACE MD Mar 19, 2018 4:32 pm
[2018-03-19] MEDS ORDERED: ACHD5005 PO (16:35)
--- NOTE | 2018-03-19 16:36 | Discharge Inst-Simple/Standard ---
Discharge Inst-Standard Discharge Medications New, Converted or Re-Newed RX: RX on Chart Patient Instructions/Follow Up Plan of Care/Instructions/FU: Band-Aids of in a.m. Incentive spirometry. Follow-up in 2 weeks Activity as Tolerated: Yes Discharge Diet: ADA Diet RADHA GRACE MD Mar 19, 2018 4:36 pm
[2018-03-19] MEDS ORDERED: HYDROcodone/APAP 5 MG/325 MG (LORTAB) TAB PO NR (16:45)
[2018-03-19] MEDS: morphine INJ 10 MG/ML 1ML (SYR OR VIAL) IVP PRN ×2 (16:45→16:52)
[2018-03-19] MEDS ORDERED: ONDANSETRON 4 MG/2 ML (SDV) Z0FRAN IVP PRN (17:00)
[2018-03-19] MEDS: HYDROmorphone 1 MG/ML (DILAUDID) 1 ML SYRINGE IV PRN ×2 (17:03→17:13)
[2018-03-19 17:45] VITALS: BP 151/87
[2018-03-19 19:30] VITALS: BP 165/93
[2018-03-20 00:09] VITALS: BP 132/78
[2018-03-20] MEDS: NS W/KCL 40 MEQ/L 1,000 ML IV SCH ×2 (00:13→05:48)
[2018-03-20 04:44] VITALS: BP 128/72
[2018-03-20] MEDS: fentaNYL INJECTION 100 MCG/2 ML AMP IV PRN ×3 (04:47→11:49)
[2018-03-20] MEDS: amLODIPine 10 MG (NORVASC) TAB PO SCH (04:47)
[2018-03-20] MEDS: PANTOPRAZOLE 40 MG (PROTONIX) TAB PO SCH (04:47)
--- NOTE | 2018-03-20 07:41 | Anesthesia-General Post-Op ---
General Patient Condition Mental Status/LOC: Same as Preop Cardiovascular: Satisfactory Nausea/Vomiting: Absent Respiratory: Satisfactory Pain: Controlled Complications: Absent Post Op Complications Complications None Follow Up Care/Instructions Patient Instructions None needed. Anesthesia/Patient Condition Patient Condition Patient is doing well, no complaints, stable vital signs, no apparent adverse anesthesia problems. No complications reported per nursing. MARCE LANDAVERDE CRNA Mar 20, 2018 07:41
[2018-03-20] MEDS: lisINopril 40 MG (PRINIVIL) TABLET PO SCH (08:19)
[2018-03-20 08:30] VITALS: BP 121/75
--- NOTE | 2018-03-20 14:11 | Progress Note-Standard ---
Standard Progress Note Progress Notes/Assess & Plan Date Seen by Provider: Mar 20, 2018 Time Seen by Provider: 13:20 Progress/Assessment & Plan right upper quadrant pain persists. Bilirubin more elevated. Awaiting surgery satisfactory postoperative recovery. Pain control adequate. Afebrile. Tolerating diet and could be discharged home Final Diagnosis gallstones with acute cholecystitis RADHA GRACE MD Mar 20, 2018 2:11 pm
== END 2018-03-20 13:50 | disposition home or self-care (01) ==
LOC: EDUNIT# 13:02 → ER 13:04 → SDC 13:53 → UNDOADMOB 13:53 → 4TH 13:53 → UNDODISOB 03-20 13:50 → SDC 03-20 13:50
PROVIDERS: ATTEND Surgery
DX: K80.10 Calculus of gallbladder with chronic cholecystitis without obstruction (principal); I10 Essential (primary) hypertension; Z86.73 Personal history of transient ischemic attack (TIA), and cerebral infarction without residual deficits; F32.9 Major depressive disorder, single episode, unspecified; K21.9 Gastro-esophageal reflux disease without esophagitis; Z79.899 Other long term (current) drug therapy; Z98.84 Bariatric surgery status
CPT/HCPCS: 36415; 76705; 80053; 83690; 85025; 87081; 88304; 96374; 96375; 96376

== ENCOUNTER 2019-08-06 06:35 | Emergency (ER) | payer OTHER ==
[~2019-08-06] VITALS: Ht 175 cm; Wt 95.0 kg
[~2019-08-06 06:35] MED LIST changes: +ACHD5005 PO; +AMLO10TA7 PO; +BENA40TA59 PO; +CITA20TA12 PO; +FEXO-46 PO; +MONT10TA21 PO; +NEBI5TAB8 PO; +PANT40TA3 PO
[2019-08-06] MEDS ORDERED: LACTATED RINGERS 1,000 ML IV ONE (06:51)
--- NOTE | 2019-08-06 06:59 | ED General ---
General Stated Complaint: SYNCOPE,CP Source of Information: Patient Exam Limitations: No Limitations (ASHLIE GONZALEZ MD) History of Present Illness Date Seen by Provider: Aug 06, 2019 Time Seen by Provider: 06:35 Initial Comments Here with report of episode of weakness, sweating and low blood pressure. 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 He had gone into a patient room to give treatment started feeling weak. He stepped out of the room and roney ost passed out. He was able to hold on to his work station and coworker noticed him and set him down. He was quite diaphoretic at the time as well as pale. Blood pressure 80 systolic. He was brought down to the emergency department for further evaluation. He denies chest pain, breathing problems and states overall he is actually feeling better now. Does have history of hypertension and did take his medicines last night. Reports not missing any doses. Denies nausea, vomiting, diarrhea or recent illness. No recent changes to his medicines. Timing/Duration: 1/2 Hour, Changing Over Time, Gone Now Severity: Moderate Modifying Factors: improves with Rest Associated Systoms: No Chest Pain, No Cough; Diaphoresis; No Nausea/Vomiting, No Shortness of Air; Syncope, Weakness (ASHLIE GONZALEZ MD) Allergies and Home Medications Allergies Coded Allergies: No Known Drug Allergies (Unverified , 03/18/18) Home Medications Amlodipine Besylate 10 Mg Tablet, 10 MG PO 0600, (Reported) LAST FILLED #30 Benazepril HCl 40 Mg Tablet, 40 MG PO 0600, (Reported) LAST FILLED #30 10-17-17 Citalopram Hydrobromide 20 Mg Tablet, 20 MG PO 0600, (Reported) LAST FILLED #30 Fexofenadine HCl 180 Mg Tablet, 180 MG PO 0600, (Reported) Hydrocodone Bit/Acetaminophen 1 Tab Tab, 1-2 TAB PO 4-6HR PRN for PAIN Prescribed by: RADHA GRACE on 03/19/18 1635 Montelukast Sodium 10 Mg Tablet, 10 MG PO 0600, (Reported) Nebivolol HCl 5 Mg Tablet, 5 MG PO 0600, (Reported) LAST FILLED #30 10-17-17 Pantoprazole Sodium 40 Mg Tablet.dr, 40 MG PO 0600, (Reported) LAST FILLED #30 10-17-17 Patient Home Medication List Home Medication List Reviewed: Yes (ASHLIE GONZALEZ MD) Review of Systems Review of Systems Constitutional: see HPI; No chills; diaphoresis; No fever EENTM: no symptoms reported Respiratory: no symptoms reported Cardiovascular: see HPI; No chest pain, No edema Gastrointestinal: No abdominal pain, No nausea, No vomiting Skin: see HPI (ASHLIE GONZALEZ MD) All Other Systems Reviewed Negative Unless Noted: Yes (ASHLIE GONZALEZ MD) Past Ybpnffr-Ezuxed-Xosljj Hx Past Med/Social Hx: Reviewed Nursing Past Med/Soc Hx (ASHLIE GONZALEZ MD) Patient Social History Alcohol Use: Denies Use Recreational Drug Use: No Smoking Status: Never a Smoker Recent Foreign Travel: No Contact w/Someone Who Travel: No Recent Hopitalizations: Yes (back and T&A surgeries) (ASHLIE GONZALEZ MD) Immunizations Up To Date Tetanus Booster (TDap): Less than 5yrs Date of Influenza Vaccine: Jul 17, 2013 (ASHLIE GONZALEZ MD) Seasonal Allergies Seasonal Allergies: No (ASHLIE GONZALEZ MD) Past Medical History Surgeries: Yes (BACK SURGERY, LAP BAND, T & A) Respiratory: No Cardiac: Yes Hypertension Neurological: No Reproductive Disorders: No Sexually Transmitted Disease: No Gastrointestinal: Yes Gall Bladder Disease Musculoskeletal: Yes (BACK SURGERY) Endocrine: No Cancer: No Psychosocial: Yes Depression Integumentary: No Blood Disorders: No (ASHLIE GONZALEZ MD) Family Medical History Reviewed Nursing Family Hx (ASHLIE GONZALEZ MD) No Pertinent Family Hx (ASHLIE GONZALEZ MD) Physical Exam Vital Signs Vital Signs - First Documented 08/06/19 06:35 Temp 36.6 Pulse 85 Resp 20 B/P (MAP) 121/82 (95) Pulse Ox 98 O2 Delivery Room Air (ELLIOTT MCDOWELL) Vital Signs Capillary Refill : (ASHLIE GONZALEZ MD) Height, Weight, BMI Height: 5'7.00" Weight: 215lbs. 0.0oz. [age]yo; 33.7 BMI Method:Stated General Appearance: No Apparent Distress, WD/WN HEENT: PERRL/EOMI, Pharynx Normal Neck: Non Tender, Supple Respiratory: Lungs Clear, Normal Breath Sounds Cardiovascular: Regular Rate, Rhythm, No Murmur Gastrointestinal: Non Tender, Soft Back: Normal Inspection, No CVA Tenderness, No Vertebral Tenderness Extremity: Normal Range of Motion, Non Tender Neurologic/Psychiatric: Alert, Oriented x3 Skin: Normal Color, Diaphoresis (ASHLIE GONZALEZ MD) Progress/Results/Core Measures Suspected Sepsis SIRS Temperature: Pulse: Respiratory Rate: Laboratory Tests 08/06/19 06:55: White Blood Count 9.1 Blood Pressure / Mean: Laboratory Tests 08/06/19 06:55: Creatinine 0.93, Platelet Count 390, Total Bilirubin 1.2H (ASHLIE GONZALEZ MD) Results/Orders Lab Results Laboratory Tests Test 08/06/19 06:55 08/06/19 08:18 08/06/19 09:20 Range/Units White Blood Count 9.1 4.3-11.0 10^3/uL Red Blood Count 5.32 4.35-5.85 10^6/uL Hemoglobin 15.5 13.3-17.7 G/DL Hematocrit 47 40-54 % Mean Corpuscular Volume 88 80-99 FL Mean Corpuscular Hemoglobin 29 25-34 PG Mean Corpuscular Hemoglobin Concent 33 32-36 G/DL Red Cell Distribution Width 12.9 10.0-14.5 % Platelet Count 390 130-400 10^3/uL Mean Platelet Volume 9.8 7.4-10.4 FL Neutrophils (%) (Auto) 71 42-75 % Lymphocytes (%) (Auto) 22 12-44 % Monocytes (%) (Auto) 7 0-12 % Eosinophils (%) (Auto) 0 0-10 % Basophils (%) (Auto) 1 0-10 % Neutrophils # (Auto) 6.4 1.8-7.8 X 10^3 Lymphocytes # (Auto) 2.0 1.0-4.0 X 10^3 Monocytes # (Auto) 0.6 0.0-1.0 X 10^3 Eosinophils # (Auto) 0.0 0.0-0.3 10^3/uL Basophils # (Auto) 0.1 0.0-0.1 10^3/uL Sodium Level 141 135-145 MMOL/L Potassium Level 3.8 3.6-5.0 MMOL/L Chloride Level 104 98-107 MMOL/L Carbon Dioxide Level 24 21-32 MMOL/L Anion Gap 13 5-14 MMOL/L Blood Urea Nitrogen 10 7-18 MG/DL Creatinine 0.93 0.60-1.30 MG/DL Estimat Glomerular Filtration Rate > 60 BUN/Creatinine Ratio 11 Glucose Level 120 H 70-105 MG/DL Glucometer 109 70-110 MG/DL Calcium Level 9.4 8.5-10.1 MG/DL Corrected Calcium 9.2 8.5-10.1 MG/DL Magnesium Level 2.3 1.6-2.4 MG/DL Total Bilirubin 1.2 H 0.1-1.0 MG/DL Aspartate Amino Transf (AST/SGOT) 18 5-34 U/L Alanine Aminotransferase (ALT/SGPT) 14 0-55 U/L Alkaline Phosphatase 144 H 40-136 U/L Troponin I < 0.028 < 0.028 <0.028 NG/ML C-Reactive Protein High Sensitivity 0.77 H 0.00-0.50 MG/DL Total Protein 7.5 6.4-8.2 GM/DL Albumin 4.2 3.2-4.5 GM/DL Free Thyroxine 0.87 0.70-1.48 NG/DL TSH [place] Testing 5.74 H 0.35-4.94 UIU/ML Urine Color YELLOW Urine Clarity CLEAR Urine pH 6 5-9 Urine Specific Banner 1.015 L 1.016-1.022 Urine Protein 2+ H NEGATIVE Urine Glucose (UA) NEGATIVE NEGATIVE Urine Ketones 3+ H NEGATIVE Urine Nitrite NEGATIVE NEGATIVE Urine Bilirubin 1+ H NEGATIVE Urine Urobilinogen 8 H NORMAL MG/DL Urine Leukocyte Esterase 1+ H NEGATIVE Urine RBC (Auto) 1+ H NEGATIVE Urine RBC 2-5 H /HPF Urine WBC 2-5 /HPF Urine Squamous Epithelial Cells RARE /HPF Urine Crystals NONE /LPF Urine Bacteria TRACE /HPF Urine Casts PRESENT /LPF Urine Hyaline Casts 25-50 H /LPF Urine Mucus LARGE H /LPF Urine Culture Indicated YES (ELLIOTT MCDOWELL) Medications Given in ED Current Medications Medications Dose Ordered Sig/Amy Route Start Time Stop Time Status Last Admin Dose Admin Lactated Ringer's 1,000 ml @ 0 mls/hr Q0M ONCE IV 08/06/19 06:51 08/06/19 06:55 DC 08/06/19 07:03 1,000 MLS/HR (ELLIOTT MCDOWELL) Vital Signs/I&O 08/06/19 08/06/19 06:35 06:35 Temp 36.6 Pulse 85 Resp 20 B/P (MAP) 121/82 (95) Pulse Ox 98 O2 Delivery Room Air Room Air (ELLIOTT MDCOWELL) Vital Signs/I&O Capillary Refill : (ASHLIE GONZALEZ MD) Progress Note : Progress Note Seen and evaluated on arrival. IV, labs, EKG and chest x-ray ordered. LR 1 L bolus. Monitor patient. He is currently without symptoms. (ASHLIE GONZALEZ MD) ECG Initial ECG Impression Date: Aug 06, 2019 Initial ECG Impression Time: 06:41 Initial ECG Rate: 80 Initial ECG Rhythm: Normal Sinus Comment Sinus rhythm with left atrial abnormality. No evidence of ST elevation [place]. Similar morphology to 09 May 2010. Interpreted by me. (ASHLIE GONZALEZ MD) Diagnostic Imaging Diagonstic Imaging: Xray Plain Films/CT/US/NM/MRI: chest Comments [facility] [place], [place] NAME: JAQUELINE MULLEN [facility] REC#: [id number] PT STATUS: REG ER : 1970 PHYSICIAN: ASHLIE GONZALEZ MD ADMIT DATE: 08/06/19/ER Draft Date of Exam:08/06/19 CHEST 1 VIEW, AP/PA ONLY INDICATION: Syncope. COMPARISON: 07/19/2013. FINDINGS: Portable chest shows lungs are well-aerated and clear. Heart is not enlarged. No pulmonary edema. No hilar adenopathy. No pneumothorax or pleural effusion. No bony abnormalities. IMPRESSION: Normal portable chest. Dictated on workstation # [id number] Dict: 08/06/19 0750 Trans: 08/06/19 [facility] [id number] Interpreted by: MELODIE RICKS MD Electronically signed by: (ASHLIE GONZALEZ MD) Departure Impression Primary Impression: Syncope, near Additional Impression: Acute dehydration Disposition: 01 HOME, SELF-CARE Condition: Improved Departure-Patient Inst. Decision time for Depature: 09:58 (ELLIOTT MCDOWELL) Referrals: NO,LOCAL PHYSICIAN (PCP/Family) Primary Care Physician Patient Instructions: Near Fainting (DC) Add. Discharge Instructions: Make an appointment to follow-up with her primary care doctor to discuss your near syncopal episode in the next week or 2. Start taking a multivitamin daily. Cut your Norvasc/amlodipine in half. Work/School Note: Work Release Form Date Seen in the Emergency Department: Aug 06, 2019 Return to Work: Aug 08, 2019 Restrictions: No Restrictions ASHLIE GONZALEZ MD Aug 06, 2019 06:59 ELLIOTT MCDOWELL Aug 06, 2019 09:59
[2019-08-06 07:04] LABS: BASOPHILS # (AUTO) 0.1 10^3/uL (0.0-0.1); BASOPHILS % (AUTO) 1 % (0-10); EOSINOPHILS % (AUTO) 0 % (0-10); HEMATOCRIT 47 % (40-54); HEMOGLOBIN 15.5 G/DL (13.3-17.7); LYMPHOCYTES % (AUTO) 22 % (12-44); MEAN CORPUSCULAR HEMOGLOBIN 29 PG (25-34); MEAN CORPUSCULAR HGB CONC 33 G/DL (32-36); MEAN CORPUSCULAR VOLUME 88 FL (80-99); MEAN PLATELET VOLUME 9.8 FL (7.4-10.4); MONOCYTES # (AUTO) 0.6 X 10^3 (0.0-1.0); MONOCYTES % (AUTO) 7 % (0-12); NEUTROPHILS # (AUTO) 6.4 X 10^3 (1.8-7.8); NEUTROPHILS % (AUTO) 71 % (42-75); PLATELET COUNT 390 10^3/uL (130-400); RED CELL DISTRIBUTION WIDTH 12.9 % (10.0-14.5); WHITE BLOOD COUNT 9.1 10^3/uL (4.3-11.0)
--- NOTE | 2019-08-06 07:05 | NUR ---
INTRODUCED SELF TO PT. DENIES NEEDS AT THIS TIME.
[2019-08-06 07:24] LABS: ALANINE AMINOTRANSFERASE 14 U/L (0-55); ALBUMIN 4.2 GM/DL (3.2-4.5); ALKALINE PHOSPHATASE 144 U/L (40-136); BILIRUBIN,TOTAL 1.2 MG/DL (0.1-1.0); BUN/CREATININE RATIO 11; CALCIUM 9.4 MG/DL (8.5-10.1); CARBON DIOXIDE 24 MMOL/L (21-32); CHLORIDE 104 MMOL/L (98-107); CREATININE SERUM 0.93 MG/DL (0.60-1.30); GFR ESTIMATED > 60; GLUCOSE 120 MG/DL (70-105); MAGNESIUM 2.3 MG/DL (1.6-2.4); POTASSIUM 3.8 MMOL/L (3.6-5.0); SODIUM 141 MMOL/L (135-145); TOTAL PROTEIN 7.5 GM/DL (6.4-8.2)
[2019-08-06 07:45] LABS: TSH (THYROID ANALYZER) 5.74 UIU/ML (0.35-4.94)
--- NOTE | 2019-08-06 07:53 | Diagnostic Imaging Report ---
INDICATION: Syncope. COMPARISON: 07/19/2013. FINDINGS: Portable chest shows lungs are well-aerated and clear. Heart is not enlarged. No pulmonary edema. No hilar adenopathy. No pneumothorax or pleural effusion. No bony abnormalities. IMPRESSION: Normal portable chest. Dictated by: Dictated on workstation # [id number]
[2019-08-06 08:25] LABS: CLARITY,URINE CLEAR; COLOR,URINE YELLOW; GLUCOSE, URINE (UA) NEGATIVE (NEGATIVE); KETONES,URINE 3+ (NEGATIVE); LEUKOCYTE ESTERASE ,URINE 1+ (NEGATIVE); NITRITE,URINE NEGATIVE (NEGATIVE); PH,URINE 6 (5-9); PROTEIN,URINE 2+ (NEGATIVE)
[2019-08-06 08:30] LABS: FREE T4 (FREE THYROXINE) 0.87 NG/DL (0.70-1.48)
--- NOTE | 2019-08-06 08:32 | NUR ---
IN TALKING TO PT AT THIS TIME.
[2019-08-06 08:44] LABS: BILIRUBIN,URINE 1+ (NEGATIVE)
[2019-08-06 08:45] LABS: BACTERIA,URINE TRACE /HPF; HYALINE CASTS, URINE 25-50 /LPF; SQUAMOUS EPITHELIAL CELL,UR RARE /HPF
--- NOTE | 2019-08-06 09:53 | NUR ---
IN TALKING TO PT AT THIS TIME.
[2019-08-06 10:06] VITALS: BP 129/97
== END 2019-08-06 10:06 | disposition home or self-care (01) ==
LOC: EDUNIT# 06:35 → ER 06:35
DX: R55 Syncope and collapse (principal); E86.0 Dehydration; I10 Essential (primary) hypertension; F32.9 Major depressive disorder, single episode, unspecified; Z90.89 Acquired absence of other organs
CPT/HCPCS: 36415; 71045; 80053; 81000; 82962; 83735; 84439; 84443; 84484; 85025; 86141; 87088; 93005; 93041; 96360

== ENCOUNTER → 2020-08-11 | Outpatient (CLI) | payer OTHER ==
--- NOTE | 2020-08-02 08:15 | HISTORY AND PHYSICAL ---
DATE OF SERVICE: This history and physical will be for 08/11/2020. HISTORY OF PRESENT ILLNESS: The patient is a 49-year-old male known to us. He has a history of morbid obesity and medical comorbidities including hypertension, hypercholesterolemia, gastroesophageal reflux disease, degenerative joint disease and sleep apnea. He is status post lap band placement with an Allergan LAP Band on 05/12/2010. He has done well for the majority of the duration of having the band placed; however, feels much less restricted. He underwent a recent adjustment 08/29/2020 and felt restriction immediately after the adjustment; however, the following day did not. He states that he is able to eat greater than two cups of ____ volume for sitting and feels hungry much sooner in between meals. He is able to get in a greater than 64 fluid ounces of water daily as well as greater than 40 grams of protein daily as well. PAST MEDICAL HISTORY: Hypertension, hypercholesterolemia, sleep apnea, gastroesophageal reflux disease, degenerative joint disease, depression. PAST SURGICAL HISTORY: Tonsillectomy, T10 diskectomy, laparoscopic adjustable gastric band 05/12/2010. ALLERGIES: No known drug allergies. MEDICATIONS: Metoprolol 50 mg daily, citalopram 20 mg daily, amlodipine 10 mg daily, Benazepril 40 mg daily, montelukast 10 mg daily. SOCIAL HISTORY: Negative smoke, negative alcohol. FAMILY HISTORY: Noncontributory. VITAL SIGNS: Stable. Blood pressure 156/96. Current weight 270.9 pounds at 5 feet 7 inches, body mass index of 42.4. REVIEW OF SYSTEMS: This is a well-nourished male in no acute distress. He is not experiencing any shortness of breath or difficulty breathing. No chest pain, palpitations, diaphoresis. No nausea, vomiting. No hematemesis or coffee ground emesis. No diarrhea, constipation, no red blood per rectum, no dark tarry stools. No fever, chills, no recent inadvertent weight loss. All other review of systems negative. PHYSICAL EXAMINATION: CHEST: Clear. Good breath sounds bilaterally. HEART: Regular, no murmurs. EXTREMITIES: No lower extremity edema, negative Homans sign. HEENT: No scleral icterus. NECK: No cervical lymphadenopathy. ABDOMEN: Soft, nontender, nondistended. ASSESSMENT AND PLAN: A 49-year-old male with minimal gastric restriction after a recent laparoscopic adjustable gastric band adjustment. This may indicate a leak within the band system and we will proceed with a contrast study through the port tubing as well as the actual adjustable gastric band to look for a leak as well as a delayed film the following day. Job ID: [id number] DocumentID: [id number] Dictated Date: 07/27/2020 16:49:29 Belting And Webbing Inspector Date: 07/27/2020 18:39:50 Dictated By: OLMAN FRAIRE MD
[~2020-08-11] MED LIST changes: +AMLO-251 PO; -AMLO10TA7 PO; +IOHEXOL 240 MGI/ML 50 ML (OMNIPAQUE) VIAL IV ONE; -PANT40TA3 PO; +PANT40TA52 PO; +WATER (STERILE) FOR INJ 10 ML BTL IV ONE; +WATER (STERILE) FOR INJECTION 10 ML ONE
--- NOTE | 2020-08-11 12:46 | Diagnostic Imaging Report ---
INDICATION: Patient with lap band. Evaluate for lap band malfunction. TECHNIQUE: The patient was brought to the fluoroscopy suite and placed on the table in the supine position. The lap band port was percutaneously accessed by Dr. Whitaker. A small volume of Omnipaque 240 contrast mixed with sterile water was injected under fluoroscopic observation. Spot films were obtained. A total of 1 minute and 9 seconds of fluoroscopic time was utilized. FINDINGS: The preliminary radiograph demonstrates appropriate position of the lap band in the left upper quadrant. The lap band port is located in the subcutaneous tissues of the right abdomen. No definite interruption or kinking of the connection tubing is identified. After contrast was injected, there appears to be fairly normal contour to the lap band. No definite extravasation of contrast is seen from the lap band to suggest leakage or rupture. No extravasation from the connection tubing is identified. IMPRESSION: Unremarkable fluoroscopic evaluation of the lap band and connection tubing. No definite extravasation of contrast is identified. The patient will return tomorrow and a KUB of the abdomen will be obtained for followup. Dictated by: Dictated on workstation # [id number]
== END ==
LOC: RAD 10:46
PROVIDERS: ATTEND Surgery
DX: Z03.89 Encounter for observation for other suspected diseases and conditions ruled out (principal)
CPT/HCPCS: 49465

== ENCOUNTER → 2020-08-12 | Outpatient (CLI) | payer OTHER ==
[~2020-08-12] MED LIST changes: -IOHEXOL 240 MGI/ML 50 ML (OMNIPAQUE) VIAL IV ONE; -WATER (STERILE) FOR INJ 10 ML BTL IV ONE; -WATER (STERILE) FOR INJECTION 10 ML ONE
--- NOTE | 2020-08-12 12:46 | Diagnostic Imaging Report ---
Supine abdomen at 12:04. Indication: Check lap band device Yesterday the patient underwent fluoroscopic evaluation of the lap band and the lap band tubing. Specifically a small volume of Omnipaque 240 was injected into the lap band port. There is no sign of extravasation of contrast from the tubing or of the lap band device itself. On this exam there still appears to be some contrast present within the lap band device. This would suggest that the device is intact. No other abnormality is identified. Impression: There is still some residual contrast within the lap band device. This does suggest that the device is intact. Dictated by: Dictated on workstation # [id number]
== END ==
LOC: RAD 11:54
PROVIDERS: ATTEND Surgery
DX: Z46.51 Encounter for fitting and adjustment of gastric lap band (principal)
CPT/HCPCS: 74018

== ENCOUNTER 2021-12-08 05:37 | Outpatient (CLI) | payer OTHER ==
[~2021-12-08] VITALS: Ht 170.2 cm; Wt 129.5 kg
== END 2021-12-08 09:55 ==
LOC: PREOP 05:37
PROVIDERS: ATTEND Surgery
DX: Z01.818 Encounter for other preprocedural examination (principal)

== ENCOUNTER 2021-12-15 08:23 | Day surgery (SDC) | payer OTHER ==
--- NOTE | 2021-12-07 15:18 | HISTORY AND PHYSICAL ---
DATE OF SERVICE: HISTORY AND PHYSICAL DATE OF ADMISSION: 12/15/2021. HISTORY OF PRESENT ILLNESS: The patient is a 51-year-old male known to us. He has a history of morbid obesity and medical comorbidities related to his obesity including hypertension, hypercholesterolemia, gastroesophageal reflux disease, degenerative joint disease and sleep apnea. He is status post laparoscopic adjustable gastric band with an APO band on 05/02/2010. He had done well for the majority of the duration of the band; however, the band became less restrictive even after recent adjustments. Contrast study was done under fluoroscopy; however, there was no leak identified. However, again, he did not have any restriction within 24 hours. He then underwent a KUB, which did show that the band had slipped posteriorly. He again states that due to the lack of restriction, he has been able to eat significant amounts of food of greater than two cups of ground food volume per meal and has regained back the majority of his adult weight. Due to the band slippage and ineffectiveness, we will proceed with removal of the adjustable gastric band as well as the adjustment port. PAST SURGICAL HISTORY: Laparoscopic adjustable gastric band with an Allergan APO band in 2009, tonsillectomy, laparoscopic cholecystectomy 2016. ALLERGIES: NO KNOWN DRUG ALLERGIES. MEDICATIONS: Metoprolol 50 mg daily, citalopram 20 mg daily, amlodipine 10 mg daily, benazepril 40 mg daily, montelukast 10 mg daily, Protonix 40 mg daily. VITAL SIGNS: Blood pressure 148/84. Current weight 292.9 pounds at 5 feet 7 inches with a body mass index of 45.87. REVIEW OF SYSTEMS: Well-nourished male currently in no acute distress. He is not experiencing any shortness of breath or difficulty breathing. No chest pain, palpitations, diaphoresis. No nausea, vomiting. No restriction. He has developed reflux since regaining weight back. No hematemesis, no coffee ground emesis. No diarrhea, constipation; no red blood per rectum, no dark tarry stools. No fever, chills' no recent inadvertent weight loss. All other review of systems negative. PHYSICAL EXAMINATION: CHEST: Clear. Good breath sounds bilaterally. HEART: Regular, no murmurs. EXTREMITIES: No lower extremity edema, negative Homans sign. HEENT: No scleral icterus. NECK: No cervical lymphadenopathy. ABDOMEN: Soft, nontender, nondistended with an intact port. No redness or erythema. SKIN: Warm, dry. ASSESSMENT AND PLAN: A 51-year-old male with a posterior band slippage as well as likely band, leakage and malfunction with weight regain and medical comorbidities related to morbid obesity including hypertension, hypercholesterolemia, gastroesophageal reflux disease, degenerative joint disease and obstructive sleep apnea. We will proceed with a diagnostic laparoscopy and removal of the gastric restrictive device as well as the subcutaneous port. Job ID: [id number] DocumentID: [id number] Dictated Date: 12/02/2021 13:40:51 Sanitation Inspector Date: 12/02/2021 14:22:21 Dictated By: OLMAN FRAIRE MD MTDD
[2021-12-15] VITALS (13 sets, daily range): BP systolic 98–163; BP diastolic 68–106
[~2021-12-15] VITALS: Ht 170.2 cm; Wt 129.5 kg
[2021-12-15] MEDS: LACTATED RINGERS 1,000 ML IV PRN ×2 (08:53→10:50)
--- NOTE | 2021-12-15 08:56 | Progress Note-Pre Operative ---
Pre-Operative Progress Note H&P Reviewed The H&P was reviewed, patient examined and no changes noted. Date Seen by Provider: Dec 15, 2021 Time Seen by Provider: 08:55 Date H&P Reviewed: Dec 15, 2021 Time H&P Reviewed: 08:50 Pre-Operative Diagnosis: Lap Band Slippage CAPRICE CHANDLER APRN Dec 15, 2021 08:56
[2021-12-15] MEDS ORDERED: HYDR-3817 PO (08:58)
--- NOTE | 2021-12-15 08:59 | Discharge Inst-Surgical ---
D/C Lap Instructions-KIDO Reconcile Patient Problems Problems Reviewed?: Yes New, Converted, or Re-Newed RX: RX on Chart Follow Up Appt in 2 weeks Activity as tolerated No driving for 24 hours No driving while on pain medications Incentive Spirometry use every 2 hours while awake Regular Diet Symptoms to Report: Fever over 101 degree F, Nausea/Vomiting Infection Signs and Symptoms to report: Increased redness, Foul odor of wound, Increased drainage Bathing instructions: May shower Operative Area Clean/Dry; Keep incision clean/dry If any problems/questions: Contact your physician or go to Emergency Room CAPRICE CHANDLER APRN Dec 15, 2021 08:59
[2021-12-15] MEDS ORDERED: ceFAZolin 2 GM IV Premixed 50 ML IV ONE (09:00)
[2021-12-15] MEDS ORDERED: HYDROcodone/APAP 5 MG/325 MG (LORTAB) TAB PO ONE (09:00)
[2021-12-15] MEDS ORDERED: ONDANSETRON 4 MG/2 ML (SDV) Z0FRAN IVP PRN ×2 (09:00→11:45)
[2021-12-15] MEDS ORDERED: morphine INJ 10 MG/ML 1ML (SYR OR VIAL) IVP PRN (09:00)
[2021-12-15] MEDS ORDERED: ACETAMINOPHEN 325 MG TABLET PO PRN (09:00)
[2021-12-15] MEDS ORDERED: ONDANSETRON 4 MG/2 ML (SDV) Z0FRAN ONE (09:39)
[2021-12-15] MEDS ORDERED: ROCURONIUM 10 MG/ML 5 ML SYRINGE IV ONE (09:39)
[2021-12-15] MEDS ORDERED: GLYCOPYRROLATE 0.2 MG/ML (ROBINUL) 2 ML VIAL ONE ×2 (09:39→11:24)
[2021-12-15] MEDS ORDERED: LIDOCAINE PF 2% 5 ML (XYLOCAINE) VIAL ONE (09:39)
[2021-12-15] MEDS ORDERED: fentaNYL INJ 100 MCG/2 ML AMP ONE (09:39)
[2021-12-15] MEDS ORDERED: proPOfol 200 MG/20 ML (DIPRIVAN) VIAL IV ONE (09:39)
[2021-12-15] MEDS ORDERED: MIDAZOLAM 2 MG/2 ML (VERSED) VIAL ONE (09:39)
[2021-12-15] MEDS ORDERED: NEOSTIGMINE 3 MG/3 ML VIAL ONE (09:39)
[2021-12-15] MEDS ORDERED: LIDOCAINE/EPI 1%-1:200,000 (XYLOCAINE) 30 ML VIAL ONE (09:50)
--- NOTE | 2021-12-15 11:31 | Progress Note-Post Operative ---
Post-Operative Progess Note Surgeon (s)/Janitorial Services Supervisor (s) Surgeon OLMAN FRAIRE MD Janitorial Services Supervisor: shima dow CHIEF SCIENCE OFFICER Pre-Operative Diagnosis Lap Band Slippage Post-Operative Diagnosis same, band leak at level of internal cushion Procedure & Operative Findings Date of Procedure 12/15/21 Procedure Performed/Findings dx laparoscopy, gastric band and subcutaneous port removal Anesthesia Type get Estimated Blood Loss Estimated blood loss (mL): minimal Specimens/Packing Specimens Removed none OLMAN FRAIRE MD Dec 15, 2021 11:31
[2021-12-15] MEDS ORDERED: HYDROmorphone 2 MG/ML VIAL (DILAUDID) IV ONE (11:45)
[2021-12-15] MEDS ORDERED: morphine INJ 10 MG/ML 1ML (SYR OR VIAL) IVP ONE (11:45)
[2021-12-15] MEDS ORDERED: HYDROmorphone 2 MG/ML VIAL (DILAUDID) ONE (11:57)
[2021-12-15] MEDS ORDERED: SEVOFLURANE (ULTANE) 15 ML INHAL SOLN ONE (12:18)
[2021-12-15] MEDS ORDERED: HYDROcodone/APAP 5 MG/325 MG (LORTAB) TAB ONE (12:51)
--- NOTE | 2021-12-15 13:24 | OPERATIVE REPORT ---
DATE OF SERVICE: 12/15/2021 PREOPERATIVE DIAGNOSIS: Inferior band slippage as well as band malfunction. POSTOPERATIVE DIAGNOSES: Inferior band slippage, leak within the band at the level of the inner cushion. PROCEDURE: Diagnostic laparoscopy, removal of gastric band and subcutaneous reservoir. SURGEON: Olman Fraire MD. HEATER FURNACE: Anthony Zambrano APRN. ANESTHESIA: General endotracheal. ESTIMATED BLOOD LOSS: Minimal. FINDINGS: Inferior band slippage, leak within the band at the level of the inner cushion. DISPOSITION: The patient tolerated the procedure well. INDICATIONS: The patient is a 51-year-old male known to us. He has a history of morbid obesity and medical comorbidities including hypertension, hypercholesterolemia, gastroesophageal reflux disease, degenerative joint disease and sleep apnea. He is status post laparoscopic adjustable gastric band with APL band on 05/02/2010. He had done well for the majority of the duration of the band; however, the band became less restrictive even after multiple recent adjustments. A contrast study was done under fluoroscopy; however, there was no leak identified; however, again he would have no restrictions within 24 hours after an adjustment. He underwent a KUB, which did show that the band had slipped inferiorly. He states that due to the lack of restriction, he has been able to eat significant amounts of food or greater than two cups of ground volume for sitting and has regained the majority of his adult weight back. Due to the band slippage as well as ineffectiveness, we will proceed with a diagnostic laparoscopy as well as removal of the gastric band and subcutaneous adjustable port. DESCRIPTION OF PROCEDURE: The patient was brought to the operating room, laid supine on the table. After adequate IV pain and sedative medications and general endotracheal intubation, the abdomen was prepped and draped in standard surgical fashion. A 0.5% Marcaine with epinephrine was used to anesthetize overlying skin in the left upper abdominal quadrant and a transverse skin incision made using a 15 blade. An 0 silk suture was applied to the medial aspect of the incision for retraction and a Veress needle inserted with a low opening pressure of 0 mmHg. The abdomen was insufflated to 15 mmHg pressure. The Veress needle removed, and a 5 mm XL trocar placed followed by a 5 mm 45-degree angle laparoscope visualizing the peritoneal cavity. A 4-quadrant abdominal exploration was performed. At this time, we cannot visualize the band. Under direct visualization, we then proceed to place a left to midline 5 mm port after the skin and peritoneal lining were anesthetized using 0.5% Marcaine with epinephrine and a transverse skin incision made using 15 blade. In a similar manner, a midabdominal right of midline 10 mm port was placed followed by a right upper abdominal quadrant port. The liver was then retracted superiorly. There was a band slippage identified with a band slipping inferiorly. Upon further examination, the patient did have a leak within the substance within the band at the level of the inner portion where cushions were located. The patient was then placed in steep reverse Trendelenburg position. The buckle of the band was then dissected out using blunt dissection as well as a Sonicision. The band was unclasped, and the band tubing cut, and the band removed from around the stomach intact. This was then removed with visualization of good hemostasis as well as no leakage of any gastric content. The 10 mm port site fascia and peritoneum were then closed under direct visualization using a Yosi-Gunner device and 0 Vicryl suture. The abdomen was desufflated and remaining ports removed. The subcutaneous port was then removed by extending the skin incision to the 10 mm port site laterally. The subcutaneous tissue was then dissected using electrocautery. The capsule to the port was then opened using cautery. The port was then completely excised as well as the fascial sutures using electrocautery with visualization of good hemostasis. The port and the remaining tubing was then removed intact. All skin incisions were then closed using 4-0 Monocryl running subcuticular sutures. Wounds were then cleaned and covered with Dermabond. The patient tolerated the procedure well. We will start IV normal pain medication as well as a clear liquid diet. Once he is tolerating clears, has good pain control with oral pain medications, ambulating well, we will discharge him home where he will be instructed to do no heavy lifting or exertion for the next two weeks. Job ID: [id number] DocumentID: [id number] Dictated Date: 12/15/2021 11:43:09 Sap Data Analyst Date: 12/15/2021 13:23:52 Dictated By: OLMAN FRAIRE MD [facility]
--- NOTE | 2021-12-15 13:47 | Anesthesia-General Post-Op ---
General Patient Condition Mental Status/LOC: Same as Preop Cardiovascular: Satisfactory Nausea/Vomiting: Absent Respiratory: Satisfactory Pain: Controlled Complications: Absent Post Op Complications Complications None Follow Up Care/Instructions Patient Instructions None needed. Anesthesia/Patient Condition Patient Condition Patient is doing well, no complaints, stable vital signs, no apparent adverse anesthesia problems. ARMANI DEMPSEY DO Dec 15, 2021 13:47
== END 2021-12-15 14:05 ==
LOC: SDC 08:23
PROVIDERS: ATTEND Surgery
DX: K95.09 Other complications of gastric band procedure (principal); E66.01 Morbid (severe) obesity due to excess calories; I10 Essential (primary) hypertension; E78.00 Pure hypercholesterolemia, unspecified; K21.9 Gastro-esophageal reflux disease without esophagitis; M19.90 Unspecified osteoarthritis, unspecified site; G47.33 Obstructive sleep apnea (adult) (pediatric); Z68.42 Body mass index [BMI] 45.0-49.9, adult; Z90.49 Acquired absence of other specified parts of digestive tract; Z79.899 Other long term (current) drug therapy
CPT/HCPCS: 87081

== ENCOUNTER 2022-10-23 16:40 | Observation (INO) | payer OTHER ==
[~2022-10-23] VITALS: Ht 170.1 cm; Wt 138.0 kg
[2022-10-23] VITALS (12 sets, daily range): BP systolic 128–156; BP diastolic 87–98
[~2022-10-23 16:40] MED LIST changes: -FEXO-46 PO; +HYDR-3817 PO; +NF-ALLE180 PO
[2022-10-23] MEDS ORDERED: BISACODYL 10 MG SUPP (DULCOLAX) PR PRN (16:45)
[2022-10-23] MEDS ORDERED: LACTULOSE SYRUP 10GM/15ML (ENULOSE) 30ML UDC PO PRN (16:45)
[2022-10-23] MEDS ORDERED: ONDANSETRON 4 MG (ZOFRAN) ORAL DISSOLVE TAB PO PRN (16:45)
[2022-10-23] MEDS ORDERED: CARISOPRODOL 350 MG (SOMA) TAB PO PRN (16:45)
[2022-10-23] MEDS ORDERED: cloNIDine 0.1 MG (CATAPRES) TAB PO PRN (16:45)
[2022-10-23] MEDS ORDERED: diphenhydrAMINE 25 MG TAB (BENADRYL) PO PRN (16:45)
[2022-10-23] MEDS ORDERED: ANTACID SUSP 30 ML UDC (MYLANTA) PO PRN (16:45)
[2022-10-23] MEDS ORDERED: ENOXAPARIN 40 MG/0.4 ML (LOVENOX) SYR SC SCH (16:45)
[2022-10-23] MEDS ORDERED: MILK OF MAGNESIA 400 MG/5 ML 30 ML UDC PO PRN (16:45)
[2022-10-23] MEDS ORDERED: polyethylene glycoL POWDER 17 GM (MIRALAX) PACK PO PRN (16:45)
[2022-10-23] MEDS ORDERED: MELATONIN 3 MG TABLET PO PRN (16:45)
[2022-10-23] MEDS ORDERED: CALCIUM CARBONATE 500 MG (TUMS) TAB.CHEW PO PRN (16:45)
[2022-10-23] MEDS ORDERED: ACETAMINOPHEN 325 MG TABLET PO PRN (16:45)
[2022-10-23] MEDS ORDERED: diphenhydrAMINE 50 MG/ML INJ (BENADRYL) IVP PRN (16:45)
--- NOTE | 2022-10-23 17:14 | Diagnostic Imaging Report ---
INDICATION: Dyspnea. TECHNIQUE: AP view of the chest is obtained with comparison made to study of 08/06/2019. FINDINGS: Heart size and pulmonary vascularity are within normal limits, and the lungs are clear, bilaterally. IMPRESSION: Unremarkable chest. Dictated by: Dictated on workstation # [id number]
[2022-10-23] MEDS: CEFEPIME INJECTION 1,000 MG in NS (IVPB) 50 ML IV SCH ×2 (17:18→23:53)
[2022-10-23] MEDS: methylPREDNISolone 40 MG/ML (Solu-MEDROL) VIAL IV SCH ×2 (17:18→23:53)
[2022-10-23] MEDS: AZITHROMYCIN INJECTION 500 MG in NS (IVPB) 250 ML IV SCH (17:18)
[2022-10-23 17:19] LABS: ABG BASE EXCESS 1.9 MMOL/L (-2.5-2.5); ABG OXYGEN SATURATION 75 % (94-100); ABG PCO2 45 MMHG (35-45); ABG PH 7.38 (7.37-7.43); ABG TCO2 27.9 MMOL/L (21.0-31.0)
[2022-10-23 17:34] LABS: BASOPHILS # (AUTO) 0.1 10^3/uL (0.0-0.1); BASOPHILS % (AUTO) 1 % (0-10); EOSINOPHILS # (AUTO) 0.2 10^3/uL (0.0-0.3); EOSINOPHILS % (AUTO) 2 % (0-10); HEMATOCRIT 47 % (40-54); HEMOGLOBIN 15.5 g/dL (13.3-17.7); LYMPHOCYTES # (AUTO) 3.5 10^3/uL (1.0-4.0); LYMPHOCYTES % (AUTO) 27 % (12-44); MEAN CORPUSCULAR HEMOGLOBIN 30 pg (25-34); MEAN CORPUSCULAR HGB CONC 33 g/dL (32-36); MEAN CORPUSCULAR VOLUME 89 fL (80-99); MONOCYTES % (AUTO) 8 % (0-12); NEUTROPHILS % (AUTO) 62 % (42-75); PLATELET COUNT 370 10^3/uL (130-400); WHITE BLOOD COUNT 12.9 10^3/uL (4.3-11.0)
[2022-10-23 17:47] LABS: CHLORIDE 104 MMOL/L (98-107); POTASSIUM 3.8 MMOL/L (3.6-5.0); SODIUM 136 MMOL/L (135-145)
[2022-10-23 17:50] LABS: GLUCOSE 90 MG/DL (70-105); TOTAL PROTEIN 7.4 GM/DL (6.4-8.2)
[2022-10-23 17:51] LABS: BILIRUBIN,TOTAL 1.5 MG/DL (0.1-1.0); CARBON DIOXIDE 21 MMOL/L (21-32)
[2022-10-23 17:53] LABS: ALKALINE PHOSPHATASE 136 U/L (40-136); CREATININE SERUM 0.88 MG/DL (0.60-1.30); GFR ESTIMATED 103
[2022-10-23 17:54] LABS: BUN/CREATININE RATIO 13
[2022-10-23 17:56] LABS: ALANINE AMINOTRANSFERASE 62 U/L (0-55)
[2022-10-23 17:59] LABS: ABG PO2 38 MMHG (79-93); ALLENS TEST YES-POS; VENTILATOR NO
[2022-10-23] MEDS: ONDANSETRON 4 MG/2 ML (SDV) Z0FRAN IV PRN (18:48)
[2022-10-23] MEDS: DOCUSATE SODIUM 100 MG (COLACE) CAP PO SCH (20:25)
[2022-10-23] MEDS: SENNOSIDES 8.6 MG (SENOKOT) TAB PO SCH (20:25)
[2022-10-23] MEDS ORDERED: RT-ALBUTEROL/IPRATROPIUM 3 ML (DUONEB) VIAL INH PRN (20:30)
[2022-10-23] MEDS: inSUlin ASPART (NovoLOG) 1 UNIT/0.01 ML (CHARGE PER UNIT) SC SCH (22:26)
[2022-10-23] MEDS: morphine INJ 4 MG/ML 1 ML (VIAL/SYRINGE) IV PRN (23:53)
[2022-10-24] VITALS (8 sets, daily range): BP systolic 110–152; BP diastolic 76–96
[2022-10-24] MEDS: morphine INJ 4 MG/ML 1 ML (VIAL/SYRINGE) IV PRN ×4 (04:11→21:06)
--- NOTE | 2022-10-24 05:08 | History & Physical ---
History of Present Illness HPI/Chief Complaint CC: Dyspnea with Bronchitis HPI: This is a 52 yr old male clinic pt of mine. 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 He presented to my office with increased cough and wheezing after completing steroids and antibiotic treatment. He also reported his back pain is an issue. His white count was elevated. He is otherwise stable. No elevation in cardiac enzymes or BNP. Pt will maintain treatment at discharge tomorrow. Source: patient Exam Limitations: no limitations Date Seen 10/24/22 Time Seen by a Provider: 09:00 Attending Physician Shaniqua Martinez DO PCP Admitting Physician: Shaniqua Martinez DO Attending Physician: Shaniqua Martinez DO Referring Physician Date of Admission Oct 23, 2022 at 16:40 Home Medications & Allergies Home Medications Reviewed patient Home Medication Reconciliation performed by pharmacy medication reconciliations rd lab technician and/or nursing. Patients Allergies have been reviewed. Allergies Allergies Coded Allergies No Known Drug Allergies (Unverified03/18/18) Past Llrmmdc-Uwbegp-Dmpgnv Hx Past Med/Social Hx: Reviewed Nursing Past Med/Soc Hx, Reviewed and Corrections made Patient Social History Marrital Status: single Employed/Student: employed Alcohol Use: Occasionally Uses Alcohol Beverage of Choice: Beer Type Used: Cigarettes 2nd Hand Smoke Exposure: No Recent Foreign Travel: No Contact w/other who traveled: No Recent Hopitalizations: Yes (back and T&A surgeries) Immunizations Up To Date Tetanus Booster (TDap): Less than 5yrs Date of Influenza Vaccine: Jul 30, 2022 Seasonal Allergies Seasonal Allergies: Yes Past Medical History Surgeries: Gallbladder lap band Respiratory: Asthma, Sleep Apnea Cardiac: High Cholesterol, Hypertension Neurological: Stroke Reproductive: No Sexually Transmitted Disease: No Gastrointestinal: Gastroesophageal Reflux, Gall Bladder Disease Musculoskeletal: Chronic Back Pain Psychosocial: Depression History of Blood Disorders: No Family History No Pertinent Family Hx Review of Systems Constitutional: see HPI EENTM: no symptoms reported Respiratory: cough, dyspnea on exertion, short of breath Cardiovascular: no symptoms reported Gastrointestinal: no symptoms reported Genitourinary: no symptoms reported Musculoskeletal: back pain Skin: no symptoms reported Psychiatric/Neurological: No Symptoms Reported All Other Systems Reviewed Negative Unless Noted: Yes Physical Exam Physical Exam Vital Signs Vital Signs - First Documented 10/23/22 10/23/22 16:56 20:17 Temp 37.0 Pulse 102 Resp 22 B/P (MAP) 156/88 (110) Pulse Ox 96 O2 Delivery Room Air FiO2 21 Capillary Refill : Height, Weight, BMI Height: 5'7.00" Weight: 215lbs. 0.0oz. 97.243134se; 46.72 BMI Method:Stated General Appearance: No Apparent Distress, WD/WN, Chronically ill Eyes: Bilateral Eye Normal Inspection, Bilateral Eye PERRL HEENT: PERRL/EOMI, Normal ENT Inspection, Pharynx Normal Neck: Full Range of Motion, Normal Inspection, Non Tender, Supple, Carotid Bruit Respiratory: Chest Non Tender, No Accessory Muscle Use, No Respiratory Distres s, Crackles, Decreased Breath Sounds Cardiovascular: Regular Rate, Rhythm, No Edema, No Gallop, No JVD, No Murmur, Normal Peripheral Pulses Gastrointestinal: Normal Bowel Sounds, No Organomegaly, No Pulsatile Mass, Non Tender, Soft Back: Normal Inspection, No CVA Tenderness, No Vertebral Tenderness Extremity: Normal Capillary Refill, Normal Inspection, Normal Range of Motion, Non Tender, No Calf Tenderness, No Pedal Edema Neurologic/Psychiatric: Alert, Oriented x3, No Motor/Sensory Deficits, Normal Mood/Affect Skin: Normal Color, Warm/Dry Lymphatic: No Adenopathy Results Results/Procedures Labs Laboratory Tests 10/23/22 17:15 10/24/22 05:52 Patient resulted labs reviewed. Assessment/Plan Admission Diagnosis Assessment: Status asthmaticus failed outpatient treatment Bacterial bronchitis HTN HLP h/o lapband h/o CVA h/o lumbar spine surgery x 2 Non-compliance with CPAP for ZULEIKA Plan: IV steroids Home meds IV abx Admission Status: Observation Diagnosis/Problems Diagnosis/Problems (1) COPD exacerbation SHANIQUA MARTINEZ DO Oct 24, 2022 05:08
[2022-10-24] MEDS: CEFEPIME INJECTION 1,000 MG in NS (IVPB) 50 ML IV SCH ×4 (05:59→23:09)
[2022-10-24] MEDS: methylPREDNISolone 40 MG/ML (Solu-MEDROL) VIAL IV SCH ×4 (05:59→23:08)
[2022-10-24] MEDS: inSUlin ASPART (NovoLOG) 1 UNIT/0.01 ML (CHARGE PER UNIT) SC SCH ×4 (05:59→21:07)
[2022-10-24] MEDS: RT-ALBUTEROL/IPRATROPIUM 3 ML (DUONEB) VIAL INH SCH ×4 (06:44→18:54)
[2022-10-24 06:57] LABS: BASOPHILS % (AUTO) 0 % (0-10); EOSINOPHILS % (AUTO) 0 % (0-10); HEMATOCRIT 46 % (40-54); HEMOGLOBIN 14.9 g/dL (13.3-17.7); LYMPHOCYTES # (AUTO) 1.4 10^3/uL (1.0-4.0); LYMPHOCYTES % (AUTO) 12 % (12-44); MEAN CORPUSCULAR HEMOGLOBIN 29 pg (25-34); MEAN CORPUSCULAR HGB CONC 33 g/dL (32-36); MEAN CORPUSCULAR VOLUME 90 fL (80-99); MEAN PLATELET VOLUME 10.7 fL (9.0-12.2); MONOCYTES # (AUTO) 0.1 10^3/uL (0.0-1.0); MONOCYTES % (AUTO) 1 % (0-12); NEUTROPHILS # (AUTO) 10.2 10^3/uL (1.8-7.8); NEUTROPHILS % (AUTO) 87 % (42-75); PLATELET COUNT 354 10^3/uL (130-400); WHITE BLOOD COUNT 11.8 10^3/uL (4.3-11.0)
[2022-10-24 07:16] LABS: CALCIUM 9.2 MG/DL (8.5-10.1); CREATININE SERUM 0.86 MG/DL (0.60-1.30); TOTAL PROTEIN 7.4 GM/DL (6.4-8.2)
[2022-10-24 07:21] LABS: BAND NEUTROPHILS 1 %; LYMPHOCYTES % (MANUAL) 18 %; NEUTROPHILS % (MANUAL) 81 %; RBC MORPH NORMAL
[2022-10-24] MEDS: DOCUSATE SODIUM 100 MG (COLACE) CAP PO SCH ×2 (07:51→20:32)
[2022-10-24] MEDS: SENNOSIDES 8.6 MG (SENOKOT) TAB PO SCH ×2 (07:52→20:32)
[2022-10-24] MEDS: ENOXAPARIN 40 MG/0.4 ML (LOVENOX) SYR SC SCH ×2 (11:38→21:06)
[2022-10-24] MEDS ORDERED: PANT40TA52 PO (11:47)
[2022-10-24] MEDS ORDERED: MONT-40 PO (11:47)
[2022-10-24] MEDS ORDERED: TIRZ7.5P SQ (11:47)
[2022-10-24] MEDS ORDERED: CITA20TA9 PO (11:47)
[2022-10-24] MEDS ORDERED: METO50TA7 PO (11:47)
[2022-10-24] MEDS: ONDANSETRON 4 MG/2 ML (SDV) Z0FRAN IV PRN (15:23)
[2022-10-24] MEDS ORDERED: NON-FORMULARY MEDICATION 1 EA EA (Tirzepatide (Mounjaro) 7.5 MG) SQ SCH (15:45)
[2022-10-24] MEDS: AZITHROMYCIN INJECTION 500 MG in NS (IVPB) 250 ML IV SCH (16:07)
[2022-10-24] MEDS ORDERED: meTOproloL SUCCINATE 50 MG (TOPROL XL) TAB PO SCH (21:00)
[2022-10-24] MEDS ORDERED: amLODIPine 10 MG (NORVASC) TAB PO SCH (21:00)
[2022-10-24] MEDS ORDERED: BENAZEPRIL HCL 40 MG PO SCH (21:00)
[2022-10-24] MEDS ORDERED: NON-FORMULARY MEDICATION 1 EA EA (Nebivolol HCl (Bystolic) 5 MG) PO SCH (21:00)
[2022-10-24] MEDS ORDERED: MONTELUKAST 10 MG (SINGULAIR) TAB PO SCH (21:00)
[2022-10-24] MEDS ORDERED: lisINopril 40 MG (PRINIVIL) TABLET PO SCH (21:00)
[2022-10-24] MEDS ORDERED: PANTOPRAZOLE 40 MG (PROTONIX) TAB PO SCH (21:00)
[2022-10-25 03:20] VITALS: BP 135/84
[2022-10-25 05:20] LABS: BASOPHILS % (AUTO) 0 % (0-10); EOSINOPHILS % (AUTO) 0 % (0-10); HEMATOCRIT 41 % (40-54); HEMOGLOBIN 13.6 g/dL (13.3-17.7); LYMPHOCYTES # (AUTO) 1.5 10^3/uL (1.0-4.0); LYMPHOCYTES % (AUTO) 7 % (12-44); MEAN CORPUSCULAR HEMOGLOBIN 30 pg (25-34); MEAN CORPUSCULAR HGB CONC 33 g/dL (32-36); MEAN CORPUSCULAR VOLUME 90 fL (80-99); MEAN PLATELET VOLUME 10.2 fL (9.0-12.2); MONOCYTES # (AUTO) 0.9 10^3/uL (0.0-1.0); MONOCYTES % (AUTO) 4 % (0-12); NEUTROPHILS % (AUTO) 88 % (42-75); PLATELET COUNT 363 10^3/uL (130-400); WHITE BLOOD COUNT 21.8 10^3/uL (4.3-11.0)
[2022-10-25 05:49] LABS: LYMPHOCYTES % (MANUAL) 6 %; MONOCYTES % (MANUAL) 1 %; NEUTROPHILS % (MANUAL) 93 %
[2022-10-25 05:51] LABS: ALBUMIN 3.6 GM/DL (3.2-4.5); BILIRUBIN,TOTAL 0.7 MG/DL (0.1-1.0); CALCIUM 8.8 MG/DL (8.5-10.1); CREATININE SERUM 0.83 MG/DL (0.60-1.30); POTASSIUM 4.2 MMOL/L (3.6-5.0); TOTAL PROTEIN 6.6 GM/DL (6.4-8.2)
[2022-10-25] MEDS: inSUlin ASPART (NovoLOG) 1 UNIT/0.01 ML (CHARGE PER UNIT) SC SCH ×2 (05:52→11:26)
[2022-10-25] MEDS: methylPREDNISolone 40 MG/ML (Solu-MEDROL) VIAL IV SCH (05:52)
[2022-10-25] MEDS: CEFEPIME INJECTION 1,000 MG in NS (IVPB) 50 ML IV SCH (05:52)
[2022-10-25 07:23] VITALS: BP 122/76
[2022-10-25] MEDS: RT-ALBUTEROL/IPRATROPIUM 3 ML (DUONEB) VIAL INH SCH (08:08)
[2022-10-25] MEDS: DOCUSATE SODIUM 100 MG (COLACE) CAP PO SCH (09:14)
[2022-10-25] MEDS: SENNOSIDES 8.6 MG (SENOKOT) TAB PO SCH (09:15)
[2022-10-25] MEDS: ENOXAPARIN 40 MG/0.4 ML (LOVENOX) SYR SC SCH (09:56)
[2022-10-25] MEDS ORDERED: PRED10TA22 PO (11:00)
[2022-10-25] MEDS ORDERED: CARI350T27 PO (11:00)
[2022-10-25] MEDS ORDERED: AZIT250T12 PO (11:00)
[2022-10-25] MEDS ORDERED: OXC5T PO (11:00)
--- NOTE | 2022-10-25 11:01 | Discharge Summary ---
Diagnosis/Chief Complaint Date of Admission Oct 23, 2022 at 16:40 Date of Discharge Discharge Date: Oct 25, 2022 Discharge Diagnosis Assessment: Status asthmaticus failed outpatient treatment Bacterial bronchitis HTN HLP h/o lapband h/o CVA h/o lumbar spine surgery x 2 Non-compliance with CPAP for ZULEIKA Plan: IV steroids Home meds IV abx Discharge Summary Discharge Physical Examination Allergies: Coded Allergies: No Known Drug Allergies (Unverified , 03/18/18) Vitals & I&Os Vital Signs Date Time Temp Pulse Resp B/P (MAP) Pulse Ox O2 Delivery O2 Flow Rate FiO2 10/25/22 12:15 36.3 90 20 131/70 94 Room Air 10/23/22 20:17 21 General Appearance: Alert, Oriented X3, Cooperative Respiratory: Clear to Auscultation Cardiovascular: Regular Rate Psych/Mental Status: Mental Status NL Hospital Course Was the Problem List Reviewed?: Yes Pt had an uneventful hospital course for observation. He was placed on broad spectrum antibiotics and IV steroids. Everything was reviewed. No pneumonia was present. He improved in addition to the back pain improving on IV steroids. He felt much better. He was discharged in improved condition. Labs (last 24 hrs) Laboratory Tests 10/23/22 17:14: Influenza Type A (RT-PCR) Not Detected, Influenza Type B (RT-PCR) Not Detected, SARS-CoV-2 RNA (RT-PCR) Not Detected 10/23/22 17:15: White Blood Count 12.9H, Red Blood Count 5.25, Hemoglobin 15.5, Hematocrit 47, Mean Corpuscular Volume 89, Mean Corpuscular Hemoglobin 30, Mean Corpuscular Hemoglobin Concent 33, Red Cell Distribution Width 12.7, Platelet Count 370, Mean Platelet Volume 10.0, Immature Granulocyte % (Auto) 1, Neutrophils (%) (Auto) 62, Lymphocytes (%) (Auto) 27, Monocytes (%) (Auto) 8, Eosinophils (%) (Auto) 2, Basophils (%) (Auto) 1, Neutrophils # (Auto) 8.0H, Lymphocytes # (Auto) 3.5, Monocytes # (Auto) 1.0, Eosinophils # (Auto) 0.2, Basophils # (Auto) 0.1, Immature Granulocyte # (Auto) 0.1, Blood Gas Puncture Site RIGHT RADIAL, Blood Gas Patient Temperature 37.0, Arterial Blood pH 7.38, Arterial Blood Partial Pressure CO2 45, Arterial Blood Partial Pressure O2 38*L, Arterial Blood HCO3 27, Arterial Blood Total CO2 27.9, Arterial Blood Oxygen Saturation 75L, Arterial Blood Base Excess 1.9, Greg Test YES-POS, Blood Gas Ventilator Setting NO, Blood Gas Inspired Oxygen NA, Sodium Level 136, Potassium Level 3.8, Chloride Level 104, Carbon Dioxide Level 21, Anion Gap 11, Blood Urea Nitrogen 11, Creatinine 0.88, Estimat Glomerular Filtration Rate 103, BUN/Creatinine Ratio 13, Glucose Level 90, Lactic Acid Level 1.14, Calcium Level 9.0, Corrected Calcium 9.0, Total Bilirubin 1.5H, Aspartate Amino Transf (AST/SGOT) 38H, Alanine Aminotransferase (ALT/SGPT) 62H, Alkaline Phosphatase 136, Troponin I < 0.028, B-Type Natriuretic Peptide 21.9, Total Protein 7.4, Albumin 4.0, Procalcitonin 0.04 10/23/22 20:04: Glucometer 129H 10/24/22 05:39: Glucometer 148H 10/24/22 05:52: White Blood Count 11.8H, Red Blood Count 5.09, Hemoglobin 14.9, Hematocrit 46, Mean Corpuscular Volume 90, Mean Corpuscular Hemoglobin 29, Mean Corpuscular Hemoglobin Concent 33, Red Cell Distribution Width 12.4, Platelet Count 354, Mean Platelet Volume 10.7, Immature Granulocyte % (Auto) 1, Neutrophils (%) (Aut o) 87H, Lymphocytes (%) (Auto) 12, Monocytes (%) (Auto) 1, Eosinophils (%) (Auto) 0, Basophils (%) (Auto) 0, Neutrophils # (Auto) 10.2H, Lymphocytes # (Auto) 1.4, Monocytes # (Auto) 0.1, Eosinophils # (Auto) 0.0, Basophils # (Auto) 0.0, Immature Granulocyte # (Auto) 0.1, Neutrophils % (Manual) 81, Lymphocytes % (Manual) 18, Band Neutrophils 1, Blood Morphology Comment NORMAL, Sodium Level 136, Potassium Level 4.0, Chloride Level 106, Carbon Dioxide Level 21, Anion Gap 9, Blood Urea Nitrogen 15, Creatinine 0.86, Estimat Glomerular Filtration Rate 104, BUN/Creatinine Ratio 17, Glucose Level 153H, Calcium Level 9.2, Corrected Calcium 9.2, Total Bilirubin 1.0, Aspartate Amino Transf (AST/SGOT) 27, Alanine Aminotransferase (ALT/SGPT) 54, Alkaline Phosphatase 127, Total Protein 7.4, Albumin 4.0 10/24/22 11:24: Glucometer 174H 10/24/22 15:40: Glucometer 189H 10/24/22 20:20: Glucometer 169H 10/25/22 05:06: White Blood Count 21.8H, Red Blood Count 4.58, Hemoglobin 13.6, Hematocrit 41, Mean Corpuscular Volume 90, Mean Corpuscular Hemoglobin 30, Mean Corpuscular Hemoglobin Concent 33, Red Cell Distribution Width 12.8, Platelet Count 363, Mean Platelet Volume 10.2, Immature Granulocyte % (Auto) 1, Neutrophils (%) (Auto) 88H, Lymphocytes (%) (Auto) 7L, Monocytes (%) (Auto) 4, Eosinophils (%) (Auto) 0, Basophils (%) (Auto) 0, Neutrophils # (Auto) 19.0H, Lymphocytes # (Auto) 1.5, Monocytes # (Auto) 0.9, Eosinophils # (Auto) 0.0, Basophils # (Auto) 0.0, Immature Granulocyte # (Auto) 0.3H, Neutrophils % (Manual) 93, Lymphocytes % (Manual) 6, Monocytes % (Manual) 1, Microcytosis , Macrocytosis , Valdez Cells , Elliptocytes , Sodium Level 138, Potassium Level 4.2, Chloride Level 106, Carbon Dioxide Level 23, Anion Gap 9, Blood Urea Nitrogen 19H, Creatinine 0.83, Estimat Glomerular Filtration Rate 105, BUN/Creatinine Ratio 23, Glucose Level 141H, Calcium Level 8.8, Corrected Calcium 9.1, Total Bilirubin 0.7, Aspartate Amino Transf (AST/SGOT) 22, Alanine Aminotransferase (ALT/SGPT) 45, Alkaline Phosphatase 104, Total Protein 6.6, Albumin 3.6, Procalcitonin 0.04 10/25/22 05:40: Glucometer 117H 10/25/22 11:23: Glucometer 150H Microbiology 10/23/22 Blood Culture - Preliminary, Resulted No growth 10/23/22 MRSA Screen - Final, Complete MRSA not isolated Pending Labs Microbiology Date/Time Source Procedure Growth Status 10/23/22 17:20 Peripheral Rt Ac Blood Culture - Preliminary No growth Resulted 10/23/22 17:16 Nasal MRSA Screen - Final MRSA not isolated Complete 10/23/22 17:15 Peripheral Lt Ac Blood Culture - Preliminary No growth Resulted Laboratory Tests 10/23/22 17:14: Influenza Type A (RT-PCR) Not Detected, Influenza Type B (RT-PCR) Not Detected, SARS-CoV-2 RNA (RT-PCR) Not Detected 10/23/22 17:15: White Blood Count 12.9, Red Blood Count 5.25, Hemoglobin 15.5, Hematocrit 47, Mean Corpuscular Volume 89, Mean Corpuscular Hemoglobin 30, Mean Corpuscular Hemoglobin Concent 33, Red Cell Distribution Width 12.7, Platelet Count 370, Mean Platelet Volume 10.0, Immature Granulocyte % (Auto) 1, Neutrophils (%) (Auto) 62, Lymphocytes (%) (Auto) 27, Monocytes (%) (Auto) 8, Eosinophils (%) (A uto) 2, Basophils (%) (Auto) 1, Neutrophils # (Auto) 8.0, Lymphocytes # (Auto) 3.5, Monocytes # (Auto) 1.0, Eosinophils # (Auto) 0.2, Basophils # (Auto) 0.1, Immature Granulocyte # (Auto) 0.1, Blood Gas Puncture Site RIGHT RADIAL, Blood Gas Patient Temperature 37.0, Arterial Blood pH 7.38, Arterial Blood Partial Pressure CO2 45, Arterial Blood Partial Pressure O2 38, Arterial Blood HCO3 27, Arterial Blood Total CO2 27.9, Arterial Blood Oxygen Saturation 75, Arterial Blood Base Excess 1.9, Greg Test YES-POS, Blood Gas Ventilator Setting NO, Blood Gas Inspired Oxygen NA, Sodium Level 136, Potassium Level 3.8, Chloride Level 104, Carbon Dioxide Level 21, Anion Gap 11, Blood Urea Nitrogen 11, Creatinine 0.88, Estimat Glomerular Filtration Rate 103, BUN/Creatinine Ratio 13, Glucose Level 90, Lactic Acid Level 1.14, Calcium Level 9.0, Corrected Calcium 9.0, Total Bilirubin 1.5, Aspartate Amino Transf (AST/SGOT) 38, Alanine Aminotransferase (ALT/SGPT) 62, Alkaline Phosphatase 136, Troponin I < 0.028, B- Type Natriuretic Peptide 21.9, Total Protein 7.4, Albumin 4.0, Procalcitonin 0.04 10/23/22 20:04: Glucometer 129 10/24/22 05:39: Glucometer 148 10/24/22 05:52: White Blood Count 11.8, Red Blood Count 5.09, Hemoglobin 14.9, Hematocrit 46, Mean Corpuscular Volume 90, Mean Corpuscular Hemoglobin 29, Mean Corpuscular Hemoglobin Concent 33, Red Cell Distribution Width 12.4, Platelet Count 354, Mean Platelet Volume 10.7, Immature Granulocyte % (Auto) 1, Neutrophils (%) (Auto) 87, Lymphocytes (%) (Auto) 12, Monocytes (%) (Auto) 1, Eosinophils (%) (Auto) 0, Basophils (%) (Auto) 0, Neutrophils # (Auto) 10.2, Lymphocytes # (Auto) 1.4, Monocytes # (Auto) 0.1, Eosinophils # (Auto) 0.0, Basophils # (Auto) 0.0, Immature Granulocyte # (Auto) 0.1, Neutrophils % (Manual) 81, Lymphocytes % (Manual) 18, Band Neutrophils 1, Blood Morphology Comment NORMAL, Sodium Level 136, Potassium Level 4.0, Chloride Level 106, Carbon Dioxide Level 21, Anion Gap 9, Blood Urea Nitrogen 15, Creatinine 0.86, Estimat Glomerular Filtration Rate 104, BUN/Creatinine Ratio 17, Glucose Level 153, Calcium Level 9.2, Corrected Calcium 9.2, Total Bilirubin 1.0, Aspartate Amino Transf (AST/SGOT) 27, Alanine Aminotransferase (ALT/SGPT) 54, Alkaline Phosphatase 127, Total Protein 7.4, Albumin 4.0 10/24/22 11:24: Glucometer 174 10/24/22 15:40: Glucometer 189 10/24/22 20:20: Glucometer 169 10/25/22 05:06: White Blood Count 21.8, Red Blood Count 4.58, Hemoglobin 13.6, Hematocrit 41, Mean Corpuscular Volume 90, Mean Corpuscular Hemoglobin 30, Mean Corpuscular He moglobin Concent 33, Red Cell Distribution Width 12.8, Platelet Count 363, Mean Platelet Volume 10.2, Immature Granulocyte % (Auto) 1, Neutrophils (%) (Auto) 88, Lymphocytes (%) (Auto) 7, Monocytes (%) (Auto) 4, Eosinophils (%) (Auto) 0, Basophils (%) (Auto) 0, Neutrophils # (Auto) 19.0, Lymphocytes # (Auto) 1.5, Monocytes # (Auto) 0.9, Eosinophils # (Auto) 0.0, Basophils # (Auto) 0.0, Immature Granulocyte # (Auto) 0.3, Neutrophils % (Manual) 93, Lymphocytes % (Manual) 6, Monocytes % (Manual) 1, Microcytosis , Macrocytosis , Valdez Cells , Elliptocytes , Sodium Level 138, Potassium Level 4.2, Chloride Level 106, Carbon Dioxide Level 23, Anion Gap 9, Blood Urea Nitrogen 19, Creatinine 0.83, Estimat Glomerular Filtration Rate 105, BUN/Creatinine Ratio 23, Glucose Level 141, Calcium Level 8.8, Corrected Calcium 9.1, Total Bilirubin 0.7, Aspartate Amino Transf (AST/SGOT) 22, Alanine Aminotransferase (ALT/SGPT) 45, Alkaline Phosphatase 104, Total Protein 6.6, Albumin 3.6, Procalcitonin 0.04 10/25/22 05:40: Glucometer 117 10/25/22 11:23: Glucometer 150 Discharge Home Medications: Active Scripts Active Oxyir Tablet (Oxycodone HCl) 5 Mg Tab 10 Mg PO TID PRN Prednisone 10 Mg Tab.ds.pk 10 Mg PO DAILY Take 6 tabs(60mg)daily,decrease by 1 tab(10MG)daily. Azithromycin 250 Mg Tablet 250 Mg PO DAILY Carisoprodol 350 Mg Tablet 350 Mg PO TID PRN Reported Pantoprazole Sodium 40 Mg Tablet.dr 40 Mg PO HS Citalopram HBr (Citalopram Hydrobromide) 20 Mg Tablet 20 Mg PO HS Montelukast Sodium 10 Mg Tablet 10 Mg PO HS Metoprolol Succinate 50 Mg Tab.er.24h 50 Mg PO HS Mounjaro (Tirzepatide) 7.5 Mg/0.5 Ml Pen.injctr 7.5 Mg SQ FRI Amlodipine Besylate 10 Mg Tablet 10 Mg PO HS Lotensin (Benazepril HCl) 40 Mg Tablet 40 Mg PO HS LAST FILLED 05-03-2022 #90/90 DAY SUPPLY Instructions to patient/family Please see electronic discharge instructions given to patient. Diagnosis/Problems Diagnosis/Problems (1) COPD exacerbation CHARISSE SIDHU DO Oct 25, 2022 11:01
[2022-10-25 11:21] VITALS: BP 131/70
[2022-10-25 12:15] VITALS: BP 131/70
[2022-10-25] MEDS ORDERED: NON-FORMULARY MEDICATION 1 EA EA (Tirzepatide (Mounjaro) 7.5 MG) SQ SCH (12:30)
[2022-10-26] MEDS ORDERED: NON-FORMULARY MEDICATION 1 EA EA (Tirzepatide (Mounjaro) 7.5 MG) SQ SCH (15:45)
== END 2022-10-25 10:58 | disposition home or self-care (01) ==
LOC: UNDOADMOB 16:40 → 4TH 16:40 → UNDODISOB 10-25 12:15
PROVIDERS: ADMIT Internal Medicine; ATTEND Internal Medicine
DX: J44.1 Chronic obstructive pulmonary disease with (acute) exacerbation (principal); I10 Essential (primary) hypertension; E78.5 Hyperlipidemia, unspecified; Z86.73 Personal history of transient ischemic attack (TIA), and cerebral infarction without residual deficits; Z91.14 Patient's other noncompliance with medication regimen; F17.210 Nicotine dependence, cigarettes, uncomplicated
CPT/HCPCS: 71045; 80053 ×3; 82805; 82947 ×3; 83605; 83880; 84145 ×2; 84484; 85007 ×2; 85025; 85027 ×2; 87040; 87081; 87636; 93005; 94640; 94760; 96366 ×2; 96372 ×3; 96374; 96375; 96376 ×3; G0378; G0379; 36415

== ENCOUNTER 2022-11-22 13:03 | Outpatient (CLI) | payer OTHER ==
[~2022-11-22 13:03] MED LIST changes: +AZIT250T12 PO; +CARI350T27 PO; +CITA20TA9 PO; +METO50TA7 PO; +MONT-40 PO; +OXC5T PO; +PRED10TA22 PO; +TIRZ7.5P SQ
== END 2022-11-22 14:00 ==
LOC: SLEEP 13:03
PROVIDERS: ATTEND Otolaryngology Otolaryngology/Facial Plastic Surgery
DX: G47.33 Obstructive sleep apnea (adult) (pediatric) (principal)
CPT/HCPCS: G0399

== ENCOUNTER → 2023-03-09 | Outpatient (CLI) | payer OTHER ==
[~2023-03-09] MED LIST changes: +MONT-47 PO; -MONT10TA21 PO
--- NOTE | 2023-03-09 17:17 | Diagnostic Imaging Report ---
Indication: Right hip pain. Two-view right hip shows osteoarthritic joint space narrowing. No articular collapse. No bony avulsion. No other fracture pattern. Impression: Degenerative disease otherwise unremarkable two-view right hip. Dictated on workstation # [id number]
== END ==
LOC: RAD 13:34
PROVIDERS: ATTEND Internal Medicine
DX: M16.11 Unilateral primary osteoarthritis, right hip (principal)
CPT/HCPCS: 73502

== ENCOUNTER → 2023-03-29 | Outpatient (CLI) | payer OTHER | LOC: ORTHO 09:24 | PROVIDERS: ATTEND Orthopaedic Surgery | DX: M16.11 Unilateral primary osteoarthritis, right hip (principal) | CPT/HCPCS: 99203 ==